=== PATIENT | female | born 1935 | race Caucasian/White ===

== ENCOUNTER 2019-09-02 09:43 | Outpatient (CLI) | payer OTHER, SELFPAY ==
--- NOTE | ~2019-09-02 | MMUS_ITS ---
EXAMINATION: MM diagnostic mammo unilat LT, US breast LT limited HISTORY: Left breast asymmetries on screening mammogram TECHNIQUE: Additional 3-D tomosynthesis images of the left breast were performed and synthetic 2-D im ages were generated. CAD analysis was submitted and interpreted. High resolution limited left breast ultrasound was performed. COMPARISON: 08/19/2019, 08/08/2018, 06/26/2017, 05/28/2016 FINDINGS: MAMMOGRAPHIC FINDINGS: No persistent asymmetry is identified in the breast with spot compression views. There is return to b aseline fibroglandular appearance. ULTRASOUND: There is a 2 mm mass at the 8:00 location 3 cm from the nipple which has the appearance of an intrama mmary lymph node. IMPRESSION: 1. No mammographic or sonographic evidence of malignancy. 2. Recommend annual screening mammography while the patient remains in good health. BI-RADS Category 2: Benign finding(s). Reviewed, dictated and finalized at location A. [employer] IMPRESSION: 1. No mammographic or sonographic evidence of malignancy. 2. Recommend annual screening mammography while the patient remains in good hea lth. BI-RADS Category 2: Benign finding(s).
== END 2019-09-02 09:44 | disposition home or self-care (01) ==
PROVIDERS: PCP Emergency Medicine; Visit Provider Emergency Medicine
DX: N64.89 Other specified disorders of breast (principal)
CPT/HCPCS: 76642; 77065

== ENCOUNTER 2020-02-09 19:49 | Emergency (ER) | payer OTHER, SELFPAY ==
--- NOTE | ~2020-02-09 | CT_ITS ---
EXAMINATION: CT abdomen pelvis w con DATE: 02/09/2020 22:56 INDICATION: Abdominal pain. Right flank pain. TECHNIQUE: Computed tomography (CT) of the abdomen and pelvis was performed with 100 mL Omnipaque 350 intravenous contrast. Automated exposure control and iterative reconstruction technique were employe d. The dose-length product was 438.57 mGy-cm. COMPARISON: PET CT 04/14/2009 FINDINGS: The visualized portions of the lung bases demonstrate mild atelectasis. There are chronic p ulmonary nodules measuring up to 8 mm, consistent with granulomatous disease. No pleural effusion. Ca rdiomegaly is noted. No pericardial effusion. The liver is normal. There are gallstones in the gallbl adder, which is normal in size. The spleen is normal. Calcifications in the pancreas are consistent w ith chronic pancreatitis. The adrenal glands are normal. There is a delayed right-sided contrast neph rogram. There is mild right hydronephrosis and hydroureter. There is a 5 mm stone at right ureteroves icular junction. There is a 7 mm cyst in left kidney. There is diverticulosis of the colon without ev idence of diverticulitis. There are no dilated loops of bowel. The appendix is not visualized. There is a small sliding hiatal hernia. There are no pathologically enlarged lymph nodes. There is no free intraperitoneal fluid. There is severe lower lumbar spondylosis. IMPRESSION: 1. 5 mm stone at right ureterovesicular junction with mild right hydronephrosis and hydroureter. Reviewed, dictated and finalized at location A. IMPRESSION: 1. 5 mm stone at right ureterovesicular junction with mild right hydronephrosi s and hydroureter.
[2020-02-09 20:12] VITALS: BP 152/66; PULSE 85; RESP 18; TEMP 37.6; O2SAT 96
[2020-02-09 20:34] LABS: Basophils Absolute Auto 0.1 K/mm3 (0.0-0.1); Basophils Percent Auto 0.3 % (0.2-1.2); Eosinophils Absolute Auto 0.1 K/mm3 (0-0.3); Eosinophils Percent Auto 0.7 % (0-4.4); Hematocrit 42.2 % (37.0-47.0); Hemoglobin 13.9 g/dL (12.0-15.0); Immature Granulocyte Absolute 0.11 K/mm3 (0.00-0.031); Immature Granulocyte Percent A 0.6 % (0-0.5); Lymphocytes Absolute Auto 2.94 K/mm3 (0.9-3.2); Lymphocytes Percent Auto 16.8 % (18.3-44.2); Mean Corpuscular HGB Conc 32.9 g/dl (32-36); Mean Corpuscular Hemoglobin 29.5 pg (26-34); Mean Corpuscular Volume 89.6 fl (80-100); Mean Platelet Volume 9.3 fl (7.4-10.4); Monocytes Absolute Auto 1.1 K/mm3 (0.1-0.6); Neutrophils Absolute Auto 13.2 K/mm3 (1.3-6.7); Neutrophils Percent Auto 75.6 % (45.5-73.1); Platelet Count Result 311 k/mm3 (150-375); Red Blood Count 4.71 M/mm3 (4.2-5.4); Red Cell Distribution Width 12.6 % (11.5-14.5); White Blood Count 17.5 K/mm3 (4.5-10.0)
[2020-02-09 20:38] LABS: Add Urine Microscopic? YES; Appearance Urine Clear (Clear); Bilirubin Urine Negative (Negative); Blood Urine 2+ (Negative); Color Urine Yellow (Yellow); Glucose Urine UA 3+ mg/dL (Negative); Ketones Urine Trace mg/dL (Negative); Leukocyte Esterase Ur Negative LEU/UL (Negative); Mucus Urine Rare /lpf; Nitrate Urine Negative (Negative); Protein Urine Negative (Negative); Squamous Epithelial Cell Urine Occasional /hpf (Few); Urobilinogen Urine Negative mg/dL (<2.0)
[2020-02-09 20:45] LABS: Blood Urea Nitrogen 22 mg/dL (7-17); Calcium 9.9 mg/dL (8.4-10.2); Carbon Dioxide 24 mmol/L (22-30); Chloride 99 mmol/L (98-107); Estimated Glomerular Filt Rate 60; Glucose 263 mg/dL (65-105); Sodium 136 mmol/L (137-145)
[2020-02-09] MEDS: SODIUM CHLORIDE 0.9% IV 1,000 ML 999 ML IV CONT (22:07)
--- NOTE | 2020-02-09 22:28 | ED.ABDPAIN ---
HPI - Abdominal Pain General Chief Complaint: Abdominal Pain Stated Complaint: right flank pain Time Seen by Provider: 02/09/20 21:52 Source: patient History of Present Illness HPI narrative: 84 years old white female presents with intermittent pain at the right flank area radiating to the right lower quadrant started 3 days ago, then resolved then back again yesterday. Associated with nausea and dry heaves. Patient reports worse with certain positionS, better with certain positions. Patient lives with her daughter, was seen by her family physician for the same symptom yesterday, no specific diagnosis, patient denies any fever, chills, chest pain, shortness of breath, back pain. Patient denies any recent new physical activities. History of diabetes hypertension hyperlipidemia hysterectomy, patient on aspirin. Related Data Home Medications Medication Instructions Recorded Confirmed ascorbic acid (vitamin C) 500 mg 500 mg PO DAILY 07/31/19 capsule,extended release aspirin 81 mg tablet,delayed See Rx Instructions .ROUTE .COMPLEX 07/31/19 release cholecalciferol (vitamin D3) 50 2,000 unit PO DAILY 07/31/19 mcg (2,000 unit) capsule omega-3 fatty acids 1,000 mg 1,000 mg PO DAILY 07/31/19 capsule Allergies Allergy/AdvReac Type Severity Reaction Status Date / Time Penicillins Allergy Unknown Verified 08/24/10 15:50 Review of Systems Review of Systems: Narrative: CONSTITUTIONAL: Denies fever, chills, or sweats. EYES: Denies visual changes, redness, or discharge. ENT: Denies rhinorrhea, congestion, sore throat, or otalgia. CARDIOVASCULAR: Denies chest pain, palpitations, or edema. RESPIRATORY: Denies cough or dyspnea. GASTROINTESTINAL: Denies abdominal pain, nausea, vomiting, or diarrhea. GENITOURINARY: Denies dysuria or hematuria. SKIN: Denies rash or itching. MUSCULOSKELETAL: Right flank pain NEUROLOGIC: Denies headache, numbness, or weakness. PSYCHIATRIC: Denies anxiety or depression. [facility] Past Medical History Medical History Diabetes mellitus Family History Family History Father Cerebrovascular accident, Onset Age: 83 Family history of diabetes mellitus in first degree relative Mother Family history of heart disease in male family member before age 55, Onset Age: 82 Family history of kidney disease, Onset Age: 82 Sibling Family history of lung disease, Onset Age: 65 Social History Social History Smoking status: Former smoker Alcohol intake: never Exam Narrative: Exam Narrative: General appearance: Well-developed, well-nourished Skin: Normal color Head: Normocephalic, nontraumatic Eyes: Clear conjunctiva ENT: Oropharynx normal, ears normal, nose normal Neck: Supple, nontender Chest and respiratory: Airway patent, no respiratory distress, no accessory muscle use Heart: Regular rate/rhythm Abdomen: Soft, nontender, no organomegaly, quiet bowel sounds, mild tenderness right flank, slight tenderness right upper quadrant, negative Ferguson sign Vascular: Normal peripheral pulses, normal capillary refill. 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
[2020-02-09] MEDS: ONDANSETRON INJ 4 MG/2 ML VIAL IV PUSH (22:39)
[2020-02-09] MEDS: MORPHINE SULFATE 4 MG/ML INJ IV PUSH (22:39)
--- NOTE | 2020-02-09 23:35 | PC.NURSE ---
pt continues to rest on stretcher at this time. RR even and unlabored. pt reports relief of pain at this time. will continue to monitor pt for baseline status changes.
[2020-02-09 23:38] VITALS: BP 155/72; PULSE 91; RESP 17; O2SAT 94
[2020-02-09] MEDS: TAMSULOSIN HCL 0.4 MG CAPSULE PO (23:56)
== END 2020-02-10 00:05 | disposition home or self-care (01) ==
PROVIDERS: General Practice; Emergency Provider Emergency Medicine; PCP Emergency Medicine
DX: N13.2 Hydronephrosis with renal and ureteral calculous obstruction (principal); E11.9 Type 2 diabetes mellitus without complications
CPT/HCPCS: 36415; 74177; 80048; 81001; 85025; 87077; 87086; 87088; 87186; 96361; 96374; 96375; 99284; A9270; J2270; J2405; J7030; Q9967

== ENCOUNTER 2020-09-28 10:01 | Outpatient (CLI) | payer OTHER, SELFPAY ==
--- NOTE | ~2020-09-28 | MM_ITS ---
EXAMINATION: MM screening faith BI w rodri HISTORY: Screening TECHNIQUE: Craniocaudal and mediolateral oblique 3-D tomosynthesis images were obtained and synthetic 2-D images were generated. CAD analysis was submitted and interpreted. COMPARISON: Comparison to multiple prior studies sequentially, with oldest reviewed study dated 05/30. BREAST PARENCHYMAL COMPOSITION: There are scattered areas of fibroglandular density. FINDINGS: There is no evidence of suspicious mass, calcification, or architectural distortion to sugg est malignancy in either breast. There has been no suspicious interval change. IMPRESSION: 1. No mammographic evidence of malignancy. 2. Recommend routine screening mammography in one year. BI-RADS Category 1: Negative Reviewed, dictated and finalized at location A. RACTOR BROOMCORN THRESHING
== END 2020-09-28 10:02 | disposition home or self-care (01) ==
LOC: ANHIMG 10:03
PROVIDERS: PCP Emergency Medicine; Visit Provider Emergency Medicine
DX: Z12.31 Encounter for screening mammogram for malignant neoplasm of breast (principal)
CPT/HCPCS: 77063; 77067

== ENCOUNTER → 2020-11-24 09:55 | Outpatient (CLI) | payer OTHER, SELFPAY ==
--- NOTE | ~2020-11-24 | XR_ITS ---
EXAMINATION: XR shoulder LT min 2V DATE: 11/24/2020 10:26 INDICATION: Adhesive capsulitis of left shoulder. TECHNIQUE: 5 views of left shoulder were obtained. COMPARISON: None. FINDINGS: Bone alignment is normal. No fracture. There is mild osteoarthritis of glenohumeral joint. Acromioclavicular joint is normal. Median sternotomy wires are noted. IMPRESSION: 1. Mild glenohumeral joint osteoarthritis. Reviewed, dictated and finalized at location A.
== END ==
PROVIDERS: PCP Emergency Medicine; Visit Provider Emergency Medicine
DX: M19.012 Primary osteoarthritis, left shoulder (principal)
CPT/HCPCS: 73030

== ENCOUNTER 2021-05-20 09:46 | Emergency (ER) | payer OTHER, SELFPAY ==
[2021-05-20] VITALS (7 sets, daily range): BP systolic 168–186; BP diastolic 67–89; PULSE 69–76; RESP 13–21; TEMP 36.8–37; O2SAT 95–98
--- NOTE | ~2021-05-20 | CT_ITS ---
EXAMINATION: CT cervical spine wo con DATE: 05/20/2021 10:34 INDICATION: Head injury TECHNIQUE: Computed tomography (CT) of the cervical spine was performed without intravenous contrast. The dose-length product (DLP) was 351.73 mGy-cm. Automated exposure control and iterative reconstruc tion technique were employed. COMPARISON: None FINDINGS: There are 2 mm of anterolisthesis of C3 on C4. The vertebral body heights are maintained. T here is severe loss of intervertebral disc space height at C5-6 and C6-7 and moderate loss of disc sp shasahnk height at C4-5. The odontoid is intact. There is no fracture. Small degenerative osteophytes proj ect from the anterior endplates of multiple vertebral bodies. There is moderate to severe multilevel facet and uncovertebral joint osteoarthritis. IMPRESSION: 1. Severe cervical spondylosis without acute findings. Reviewed, dictated and finalized at location A.
--- NOTE | ~2021-05-20 | CT_ITS ---
EXAMINATION: CT brain wo con INDICATION: Head injury COMPARISON: None TECHNIQUE: Standard unenhanced head CT. The dose-length product (DLP) was 605.33 mGy-cm. The mA was a djusted according to patient size. Iterative reconstruction technique was employed. FINDINGS: There is a right parietal scalp hematoma. There is no acute intraparenchymal hemorrhage. No evidence of mass lesion. No evidence of acute infarction. There is mild periventricular and subcorti arleen hypodensity probably related to small vessel ischemic disease. There is mild prominence of the dai lci and ventricles related to cerebral atrophy. Intracranial calcified cerebral atherosclerosis is no leah. There are no extra-axial collections. There is no mass effect or midline shift. Changes in the g lobes are likely from ocular lens surgery. There is moderate mucosal thickening of the paranasal sinu ses. There is near complete opacification of the right frontal sinus. IMPRESSION: 1. Right parietal scalp hematoma without acute intracranial abnormality. 2. Sinus disease. Reviewed, dictated and finalized at location A.
--- NOTE | 2021-05-20 09:55 | ECG_ITS ---
Measurements Intervals Handley Rate: 12 P: 64 IA: 137 QRS: -6 QRSD: 73 T: 71 QT: 424 QTc: 197 Interpretive Statements SINUS BRADYCARDIA POSSIBLE LEFT ATRIAL ENLARGEMENT NONSPECIFIC ST & T-WAVE ABNORMALITY- HIGH LATERAL LEADS BASELINE ARTIFACT- I, II, III, AVR, AVL, AVF, V1, V3-V6 BORDERLINE ECG Electronically Signed On 05-20-2021 10:57:27 CDT by Arnol Sanford D.O.
--- NOTE | 2021-05-20 09:55 | ED.FALL ---
HPI - Fall General Chief Complaint: Fall Stated Complaint: fall, lac to back of head Time Seen by Provider: 05/20/21 09:48 Source: patient and RN notes reviewed Mode of arrival: EMS Limitations: no limitations History of Present Illness HPI Narrative: This is an 86 year old female with history of hyperlipidemia and DM who presents for evaluation of head injury. Patient states she was walking when she fell backwards. She is unsure why she fell. She does not know if she tripped. She denies LOC but EMS reports posterior scalp laceration that was dressed with bandage. Patient was able to get up and ambulate after fall. She reports mild headache, but denies dizziness, nausea, vomiting. She denies extremity pain, rib pain or abdominal pain. She takes aspirin daily. Unsure of her last tetanus. Related Data Home Medications Medication Instructions Recorded Confirmed ascorbic acid (vitamin C) 500 mg 500 mg PO DAILY 07/31/19 05/16/21 capsule,extended release aspirin 81 mg tablet,delayed See Rx Instructions .ROUTE .COMPLEX 07/31/19 05/16/21 release omega-3 fatty acids 1,000 mg 1,000 mg PO DAILY 07/31/19 05/16/21 capsule Allergies Allergy/AdvReac Type Severity Reaction Status Date / Time Penicillins Allergy Unknown unknown Verified 05/16/21 09:44 Review of Systems Review of Systems: All systems reviewed & are unremarkable except as noted in HPI and below PMFSH Past Medical History Medical History (Updated 05/20/21 @ 13:08 by Hawa Youngblood MD) Diabetes mellitus HLD (hyperlipidemia) Hypertension Family History Family History Father Cerebrovascular accident, Onset Age: 83 Family history of diabetes mellitus in first degree relative Mother Family history of heart disease in male family member before age 55, Onset Age: 82 Family history of kidney disease, Onset Age: 82 Sibling Family history of lung disease, Onset Age: 65 Social History Social History Smoking status: Former smoker Alcohol intake: never Exam Const: General: no acute distress and alert Orientation/consciousness: patient oriented x3 HENMT: Head: laceration (right posterior scalp laceration 3 cm no bleeding, to subcutaneous tissues) Eyes: Pupils: Equal, round and reactive pupils present EOM: EOMs intact bilaterally Neck: Neck: normal visual inspection Chest: Chest palpation & inspection: normal inspection of the chest Resp: Effort & Inspection: normal respiratory effort and no retractions Auscultation: clear to auscultation bilaterally Cardio: Rate: regular rate Rhythm: regular rhythm Heart sounds: no murmurs GI: GI Palp: Yes Soft to palpation, No Tenderness to palpation present (GI) and No Guarding due to palpation present (GI) Auscultation: normal bowel sounds Neuro: General: patient oriented x3, moves all extremities and CN's II-XI intact bilaterally Extrem: General: normal to inspection Psych: Mental Status: mental status grossly normal Affect: normal affect Course Reevaluation(s) Reevaluation #1: Patient is eager to go home. I repaired her scalp laceration. She has been ambulatory Date: 05/20/21 Time: 13:06 Vital Signs Vital signs: Vital Signs Temperature 98.6 F 05/20/21 09:41 Pulse Rate 76 05/20/21 09:41 Respiratory Rate 18 05/20/21 09:41 Blood Pressure 186/67 H 05/20/21 09:41 Pulse Oximetry 96 05/20/21 09:41 Temperature 98.2 F 05/20/21 13:42 Pulse Rate 74 05/20/21 13:42 Respiratory Rate 15 05/20/21 13:42 Blood Pressure 168/89 H 05/20/21 13:42 Pulse Oximetry 95 05/20/21 13:42 Procedures Laceration Laceration 1: Date: 05/20/21 Time: 13:00 Site: scalp Size (cm): 3 Description: linear Depth: simple, single layer Local Anesthetic: lidocaine 1% and with epi Amount of
[2021-05-20] MEDS: TETANUS,DIPHTHERIA,AC PERTUSSIS ADULT (0.5 ML) BOOSTRIX IM (10:00)
[2021-05-20 11:20] LABS: Basophils Absolute Auto 0.1 K/mm3 (0.0-0.1); Basophils Percent Auto 0.5 % (0.2-1.2); Eosinophils Absolute Auto 0.6 K/mm3 (0-0.3); Eosinophils Percent Auto 4.3 % (0-4.4); Hematocrit 45.5 % (37.0-47.0); Hemoglobin 14.3 g/dL (12.0-15.0); Immature Granulocyte Absolute 0.08 K/mm3 (0.00-0.031); Immature Granulocyte Percent A 0.6 % (0-0.5); Lymphocytes Absolute Auto 2.32 K/mm3 (0.9-3.2); Lymphocytes Percent Auto 17.9 % (18.3-44.2); Mean Corpuscular HGB Conc 31.4 g/dl (32-36); Mean Corpuscular Hemoglobin 29.6 pg (26-34); Mean Corpuscular Volume 94.2 fl (80-100); Mean Platelet Volume 9.3 fl (7.4-10.4); Monocytes Absolute Auto 0.8 K/mm3 (0.1-0.6); Monocytes Percent Auto 6.2 % (2.6-8.5); Neutrophils Absolute Auto 9.1 K/mm3 (1.3-6.7); Neutrophils Percent Auto 70.5 % (45.5-73.1); Platelet Count Result 282 k/mm3 (150-375); Red Blood Count 4.83 M/mm3 (4.2-5.4); Red Cell Distribution Width 13.9 % (11.5-14.5)
[2021-05-20 11:36] LABS: Add Urine Microscopic? YES; Appearance Urine Clear (Clear); Bacteria Urine 3+ /hpf; Bilirubin Urine Negative (Negative); Blood Urine Negative (Negative); Color Urine Yellow (Yellow); Glucose Urine UA Negative (Negative); Ketones Urine Negative (Negative); Leukocyte Esterase Ur Negative LEU/UL (Negative); Mucus Urine Rare /lpf; Nitrate Urine Negative (Negative); Protein Urine Negative (Negative); Specific Grav Ur 1.014 (1.001-1.035); Squamous Epithelial Cell Urine Occasional /hpf (Few); Urobilinogen Urine Negative mg/dL (<2.0); WBC Urine 0-3 /hpf
[2021-05-20 12:09] LABS: Alanine Aminotransferase 22 U/L (4-35); Albumin Level 4.7 g/dL (3.5-5.1); Alkaline Phosphatase 94 U/L (38-126); Anion Gap 11 mmol/L (8-16); Aspartate Amino Transferase 35 U/L (14-36); Bilirubin,Total 0.5 mg/dL (0.2-1.3); Blood Urea Nitrogen 22 mg/dL (7-17); Calcium 10.4 mg/dL (8.4-10.2); Carbon Dioxide 28 mmol/L (22-30); Chloride 101 mmol/L (98-107); Estimated Glomerular Filt Rate > 60; Glucose 135 mg/dL (65-110); Potassium 4.3 mmol/L (3.4-5.0); Sodium 140 mmol/L (137-145)
== END 2021-05-20 13:46 | disposition home or self-care (01) ==
PROVIDERS: Emergency Provider General Practice; PCP Emergency Medicine
DX: S01.01XA Laceration without foreign body of scalp, initial encounter (principal); Z23 Encounter for immunization; E11.9 Type 2 diabetes mellitus without complications; E78.5 Hyperlipidemia, unspecified; I10 Essential (primary) hypertension; Z87.891 Personal history of nicotine dependence; Z79.84 Long term (current) use of oral hypoglycemic drugs; M47.812 Spondylosis without myelopathy or radiculopathy, cervical region; J32.9 Chronic sinusitis, unspecified; R00.1 Bradycardia, unspecified; R94.31 Abnormal electrocardiogram [ECG] [EKG]; W18.30XA Fall on same level, unspecified, initial encounter
CPT/HCPCS: 12002; 36415; 70450; 72125; 80053; 81001; 85025; 90471; 90715; 93005; 99284

== ENCOUNTER 2021-06-26 08:00 | Outpatient (RCR) | payer OTHER, SELFPAY ==
--- NOTE | 2021-06-07 09:06 | PTOPEVAL ---
PHYSICAL THERAPY EVALUATION AND PLAN OF CARE 06-07-21 Thank you for referring Quin Ruggiero to [facility], for the diagnosis of repeated falls. Mrs. Ruggiero is scheduled to be seen for therapy? 2 x/week for 3 weeks. Please review, sign, date and return this plan of care JAIME. I agree with and certify that the following plan of care is medically necessary. Referring Physician Date Attending Provider: Enmanuel Hnug MD *PT Outpatient Evaluation Document 06/07/21 08:05 MELI (Rec: 06/07/21 09:00 MELI [id number]) Therapy Assessment Status Assessment Status Assessment Status Evaluation Outpatient Past Medical History Past Medical History Source of Past Medical History Patient Neurological History Hx Other Neurological Disorders Yes: Loss of conscious due to fall and hit head on dresser Cardiovascular History Hx Hypercholesterolemia Yes: meds Hx Hypertension Yes: meds, normal 120/?; have BP cuff at home Respiratory History Hx Respiratory Disorders No Significant History Gastrointestinal History Hx Gastrointestinal Disorders No Significant History Genitourinary History Hx Genitourinary Disorders No Significant History Musculoskeletal History Hx Other Musculoskeletal Disorders Yes: neck, shoulder and back pain-?reaction to COVID booster shot Endocrine History Hx Diabetes Yes: meds Other History Hx Other Medical Conditions Yes: have had COVID vaccine and booster was 2 wk ago Evaluation Information Problem Diagnosis repeated falls Onset about one year Subjective Information pt reports in the past 6 Query Text:As Reported By Patient/ months has had 2 falls: Family stepped down off sidewalk- tripped and fell forward-? shoe caught and other fall-in bedroom getting ready to leave , not sure what happened-? passed out, hit head and loss consciousness; went to ER- yahaira in head and sent home; usually know when she is going to fall --more like loss of balance and need to catch herself; sometimes at home, tennis shoe catches on the carpet from not picking up her feet; Prior Level of Function Activity Level (Last 3 Months) Occupation retired Activity of Daily Living Ability Independent Indoor/Home Mobility
--- NOTE | 2021-06-26 08:34 | PTOPEVAL ---
PHYSICAL THERAPY DISCHARGE 06-26-21 Refer to the clinical summary below, for her status today, compared to the initial evaluation. Quin has improved in all areas and will be discharged from PT services. Thank you for referring Quin Ruggiero to [facility] Please review, sign, date and return this Discharge report JAIME. I agree with and certify that the following plan of care is medically necessary. Referring Physician Date Attending Provider: Enmanuel Hung MD Document 06/26/21 08:05 MELI (Rec: 06/26/21 08:34 MELI [id number]) Assessment Status Discharge Subjective Information Quin reports: have not had Query Text:As Reported By Patient/ any falls; been trying to do Family all the exercises at home and walk more, but hard to do with my mind on my daughter that ; Pain Assessment Timing of Pain Assessment Timing of Pain Assessment Assessment Self Report Self Report Pain Level 0 Pain Score Pain Score 0: Self Report Additional Pain Score Comments when wake up in AM, always have pain in back and legs Lower Extremity Muscle Strength Testing General Lower Extremity Strength Gross Lower Extremity Strength functional strength of LE's: - single leg standing R 7/ L 5 seconds - supine SLR R 20 /L 20 reps - supine bridge 20 reps - side lying hip abduction R to 10' x 20 / L to 10' x 20 reps - in sitting, R and L DF with heel on ground x 30 reps with equal DF R/L Transfer Assessment Floor Transfer Assessment Stand to Floor Transfer Ability Independent Floor to Stand Transfer Ability Independent Cues Needed for Floor Transfer None Floor Transfer Comments use of UE on mat for transfer Balance Assessment Fatima Balance Assessment Sitting to Standing Independent w/out Hands Unsupported Stance Ability Safely- 2 minutes Sitting Unsupported, Feet on Floor Safely- 2 minutes Standing to Sitting Safely, Minimal Hand Use Transfer Ability Safely, Minimal Hand Use Unsupported Stance- Eyes Closed Safely, 10 seconds Unsupported Stance- Feet Together Independent, 1 minute Reaching Forward while Standing Confidently, 10 inches supervisor rod placing Object From Floor Independent/Safe Look Behind Shoulder - Standing Shifts Weight Well Turning 360 Degrees Turns Bilateral, < 4 secs Unsupported Stance, Alternating Feet on (I)- 8 Steps in 20 secs Stair Unsupported Tandem Stance Achieves Tandem Unilat
== END 2021-06-27 11:36 | disposition home or self-care (01) ==
LOC: ANHPT 08:00
PROVIDERS: PCP Emergency Medicine; Visit Provider Emergency Medicine
DX: R29.6 Repeated falls (principal)
CPT/HCPCS: 97110; 97161

== ENCOUNTER 2021-10-17 09:22 | Outpatient (CLI) | payer OTHER, SELFPAY ==
--- NOTE | ~2021-10-17 | MM_ITS ---
EXAMINATION: MM screening faith BI w rodri HISTORY: Screening mammogram TECHNIQUE: Craniocaudal and mediolateral oblique 3-D tomosynthesis images were obtained and synthetic 2-D images were generated. CAD analysis was submitted and interpreted. COMPARISON: 10/03/2020 bilateral screening mammogram To diagnostic left mammogram and limited left breast ultrasound 08/19/2019, 08/08/2018 bilateral screening mammogram examinations BREAST PARENCHYMAL COMPOSITION: There are scattered areas of fibroglandular density. FINDINGS: There are focal areas of asymmetry in the left breast. Diagnostic left mammogram is recomme nded, with ultrasound if required. No suspicious mass, architectural distortion, malignant calcification, skin thickening or retraction of the right breast is evident. There is no significant change on the right. IMPRESSION: 1. Left breast asymmetries 2. Diagnostic left mammogram is recommended, with ultrasound if required. BI-RADS Category 0: Incomplete: Needs additional imaging evaluation. Reviewed, dictated and finalized at location A.
== END 2021-10-17 09:23 | disposition home or self-care (01) ==
PROVIDERS: PCP Emergency Medicine; Visit Provider Emergency Medicine
DX: Z12.31 Encounter for screening mammogram for malignant neoplasm of breast (principal); R92.8 Other abnormal and inconclusive findings on diagnostic imaging of breast
CPT/HCPCS: 77063; 77067

== ENCOUNTER → 2021-10-26 15:59 | Outpatient (CLI) | payer OTHER, SELFPAY ==
--- NOTE | ~2021-10-26 | XR_ITS ---
XR shoulder LT min 2V DATE: 10/26/2021 16:24 INDICATION: Left shoulder pain TECHNIQUE: 4 views COMPARISON: left shoulder FINDINGS: There is diffuse osteopenia. No fracture or dislocation, periosteal reaction or bone destru ction. Status post sternotomy. Aortic calcification. IMPRESSION: Diffuse osteopenia Reviewed, dictated and finalized at location A. IMPRESSION: Diffuse osteopenia
== END ==
PROVIDERS: Visit Provider Emergency Medicine
DX: M85.812 Other specified disorders of bone density and structure, left shoulder (principal)
CPT/HCPCS: 73030

== ENCOUNTER 2021-11-27 11:22 | Outpatient (CLI) | payer OTHER, SELFPAY ==
--- NOTE | ~2021-11-27 | MMUS_ITS ---
EXAMINATION: MM diagnostic faith LT w rodri, US breast LT complete HISTORY: Left breast asymmetry reported on 10/17/2021 screening mammogram TECHNIQUE: Additional 3-D tomosynthesis images of the left breast were performed and synthetic 2-D im ages were generated. CAD analysis was submitted and interpreted. High resolution complete left breast ultrasound including all 4 quadrants and subareolar area was performed. COMPARISON: 10/17/2021 bilateral screening mammogram FINDINGS: MAMMOGRAPHIC FINDINGS: No suspicious mass, architectural distortion, malignant calcification, skin thickening or retraction is evident. Scattered occasional benign calcifications. ULTRASOUND: No suspicious mass, shadowing or vascularity of the left breast is evident. Benign-appearing left axi llary lymph nodes are noted. IMPRESSION: 1. No mammographic evidence of malignancy 2. Routine mammographic screening is recommended. BI-RADS Category 2: Benign finding(s). Reviewed, dictated and finalized at location A. IMPRESSION: 1. No mammographic evidence of malignancy 2. Routine mammographic screening is recommended. BI-RADS Category 2: Benign finding(s).
== END 2021-11-27 11:23 | disposition home or self-care (01) ==
LOC: ANHIMG 11:24
PROVIDERS: PCP Emergency Medicine; Visit Provider Emergency Medicine
DX: N64.89 Other specified disorders of breast (principal)
CPT/HCPCS: 76641; 77061; 77065; G0279

== ENCOUNTER 2021-12-23 14:25 | Emergency (ER) | payer OTHER, SELFPAY ==
--- NOTE | ~2021-12-23 | US_ITS ---
EXAMINATION:US venous doppler LE RT INDICATION:Swelling and right leg pain TECHNIQUE: Multiple grayscale, color flow and Doppler images of the right lower extremity deep venous systems were obtained and reviewed. COMPARISON:No prior studies for comparison. FINDINGS: The common femoral, superficial femoral and popliteal veins demonstrate normal respiratory variation, augmentation and compressibility. Color flow is also seen within the posterior tibial, pe roneal, greater saphenous and profunda veins. IMPRESSION: 1: No lower extremity deep venous thrombosis. Reviewed, dictated and finalized at location A.
--- NOTE | ~2021-12-23 | XR_ITS ---
XR knee RT 2V 12/23/2021 14:37 Indication: Right knee pain and swelling Procedure: 2 views of the right knee Comparison: No prior studies for comparison. 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 There is a moderate joint effusion. 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 There are vascular calcifications. There are surgical changes in the medial thi gh. No acute fracture or traumatic malalignment. Impression: 1: No acute fracture. 2: Moderate osteoarthritis. 3: Moderate joint effusion. Reviewed, dictated and finalized at location A. Impression: 1: No acute fracture. 2: Moderate osteoarthritis. 3: Moderate joint effusion.
[2021-12-23 14:12] VITALS: BP 165/63; PULSE 70; RESP 16; TEMP 36.4; O2SAT 97
[2021-12-23] MEDS: ACETAMINOPHEN 325 MG TABLET 650 MG PO (14:37)
--- NOTE | 2021-12-23 14:53 | ED.EXTPRO ---
HPI - Extremity Problem General Chief complaint: Extremity Problem,Nontraumatic Stated complaint: knee pain x 1 day History of Present Illness HPI Narrative: Patient is an 86-year-old female here for evaluation of atraumatic right knee pain for the past day. Patient states the pain came on while she was seated and has gradually increased since. Denies relief after aspirin. States the pain is worse with knee flexion and with ambulation. She is able to ambulate and bear weight but states it is painful. Denies trauma to the knee or recent falls. Denies hip pain, foot pain, numbness, tingling, fevers, chills, or other systemic symptoms. Denies break in skin. Related Data Home Medications Medication Instructions Recorded Confirmed ascorbic acid (vitamin C) 500 mg 500 mg PO DAILY 07/31/19 05/16/21 capsule,extended release (Vitamin C) aspirin 81 mg tablet,delayed See Rx Instructions .Route .COMPLEX 07/31/19 05/16/21 release omega-3 fatty acids 1,000 mg 1,000 mg PO DAILY 07/31/19 05/16/21 capsule (Fish Oil Concentrate) Allergies Allergy/AdvReac Type Severity Reaction Status Date / Time Penicillins Allergy Unknown unknown Verified 12/23/21 14:19 Review of Systems Review of Systems: Gen.: Denies fevers or chills Eyes: Denies eye pain or visual change ENT: Denies congestion Respiratory: Denies shortness of breath or cough CV: Denies chest pain or palpitations GI: Denies abdominal pain nausea, emesis or diarrhea denies burning, urgency, frequency or hematuria Musculoskeletal: Reports right knee pain Neuro: Denies numbness, tingling, weakness or focal weakness Skin: Denies rash Except as documented, all other systems reviewed and negative [facility] Past Medical History Medical History Diabetes mellitus HLD (hyperlipidemia) Hypertension Family History Family History Father Cerebrovascular accident, Onset Age: 83 Family history of diabetes mellitus in first degree relative Mother Family history of heart disease in male family member before age 55, Onset Age: 82 Family history of kidney disease, Onset Age: 82 Sibling Family history of lung disease, Onset Age: 65 Social History Social History Smoking status: Former smoker Alcohol intake: never Exam Narrative: APPEARANCE: Well appearing, no pain in distress, well-nourished. Head: normocephalic and atraumatic. EYES: PERRLA/EOMI, conjunctivae clear NOSE: No nasal drainage EARS: External ear normal in appearance THROAT: Oropharynx is clear. Mucous membranes are moist. NECK: Supple. No adenopathy, no masses. RESPIRATORY: Airway patent, respirations nonlabored. Clear to auscultation bilaterally, no rales, rhonchi, wheezing. CARDIOVASCULAR: Regular rate and rhythm without murmurs, rubs, or gallops. ABDOMINAL: Normoactive bowel sounds. Soft, nontender, nondistended. No rebound tenderness or guarding. MUSCULOSKELETAL: No bony tenderness to right hip, patella, femur, tib-fib to palpation. Pain in popliteal fossa is elicited with knee flexion, but she is not tender to palpation. Reports mild pain with active flexion of the right knee. No overlying redness or warmth to knee. Extremities are warm and well-perfused. No edema. NEURO: Normal speech. No focal neurologic deficits. SKIN: Skin is warm and dry. No rashes. PSYCHIATRIC: Normal affect/mood. Course Vital Signs Vital signs: Vital Signs Temperature 97.6 F 12/23/21 14:12 Pulse Rate 70 12/23/21 14:12 Respiratory Rate 16 12/23/21 14:12 Blood Pressure 165/63 H 12/23/21 14:12 Pulse Oximetry 97 12/23/21 14:12 Oxygen Delivery Room Air 12/23/21 14:12 Temperature 97.6 F 12/23/21 14:12 Pulse Rate 71 12/23/21 16:43 Respiratory Rate 17 12/23/21 16:43 Blood Pressure 164/73 H
[2021-12-23] MEDS: LIDOCAINE 5% PATCH 1 PATCH TRANSDERM (14:56)
--- NOTE | 2021-12-23 15:46 | PC.NURSE ---
Pt to U/S via w/c at this time.
[2021-12-23 16:43] VITALS: BP 164/73; PULSE 71; RESP 17; O2SAT 95
== END 2021-12-23 16:46 | disposition home or self-care (01) ==
PROVIDERS: Emergency Provider Emergency Medicine; PCP Emergency Medicine
DX: M17.11 Unilateral primary osteoarthritis, right knee (principal); E11.9 Type 2 diabetes mellitus without complications; E78.5 Hyperlipidemia, unspecified; I10 Essential (primary) hypertension; M79.604 Pain in right leg; Z79.82 Long term (current) use of aspirin; Z87.891 Personal history of nicotine dependence; Z79.84 Long term (current) use of oral hypoglycemic drugs
CPT/HCPCS: 73560; 93971; 99284; A9270

== ENCOUNTER 2022-01-21 11:19 | Observation (INO) | payer OTHER, SELFPAY ==
[2022-01-21] VITALS (37 sets, daily range): BP systolic 137–189; BP diastolic 55–109; PULSE 72–93; RESP 11–20; TEMP 36.6–37.1; O2SAT 85–100; BMI 27.4
--- NOTE | ~2022-01-21 | CT_ITS ---
EXAMINATION: CT abdomen pelvis wo con DATE: 01/21/2022 13:17 INDICATION: Left flank and lower quadrant pain TECHNIQUE: Computed tomography (CT) of the abdomen and pelvis was performed without intravenous contr ast. The dose-length product (DLP) was 489.32 mGy-cm. Automated exposure control and iterative recons truction technique were employed. COMPARISON: 02/09/2020 FINDINGS: Minimal dependent atelectasis is present in the lung bases. The heart size is normal. There is a stable 6 mm nodule of the lingula. Stones are present in the nondistended gallbladder. The live r, spleen, and adrenal glands are normal. Punctate calcifications of the pancreas are consistent with chronic pancreatitis. The right kidney is unremarkable. There is a 6 mm stone of the distal left ure ter which causes moderate hydroureteronephrosis. There is calcified atherosclerosis of the aorta and many of the other arteries. Colonic diverticulosis is present without evidence of diverticulitis. No pathologically enlarged abdominal or pelvic lymph nodes are identified. There is no free intraperiton eal gas or evidence of bowel obstruction. There is severe lower lumbar spondylosis. IMPRESSION: 1. 6 mm stone of the distal left ureter causing moderate hydroureteronephrosis. 2. Cholelithiasis without evidence of cholecystitis. Reviewed, dictated and finalized at location A.
--- NOTE | ~2022-01-21 | XR_ITS ---
EXAMINATION: XR chest 1V portable INDICATION: Chest pain TECHNIQUE: Portable AP chest at 0953 hours COMPARISON: None available FINDINGS: The lungs are free of acute opacities. No pleural effusion or pneumothorax. The cardiomedia stinal silhouette is normal. Median sternotomy wires are consistent with prior cardiac surgery. IMPRESSION: 1. No acute cardiopulmonary abnormality. Reviewed, dictated and finalized at location A.
--- NOTE | ~2022-01-21 | XR_ITS ---
EXAMINATION: XR retrograde pyelo w/stent LT DATE: 01/21/2022 16:00 CDT INDICATION: LEFT STENT . TECHNIQUE: 5 fluoroscopic images of the left abdomen were obtained during left retrograde pyelography with stent placement performed by the surgeon. I was not present in the operating room. Fluoroscopy exposure time was 16.6 seconds. Cumulative dose was 0.05424 mGy2. COMPARISON: CT abdomen pelvis 01/21/2022 FINDINGS: Guidewire access to the renal pelvis and an upper pole calyx. Subsequent deployment of a left uretera l stent, incomplete coiling in the renal pelvis, distal coil overlies expected position of the bladde r. Previously described distal ureteral stone not confidently identified. IMPRESSION: Fluoroscopic documentation of left retrograde pyelography and stent placement. Reviewed, dictated and finalized at location K.
[2022-01-21 11:58] LABS: Basophils Absolute Auto 0.1 K/mm3 (0.0-0.1); Basophils Percent Auto 0.4 % (0.2-1.2); Eosinophils Absolute Auto 0.1 K/mm3 (0-0.3); Eosinophils Percent Auto 0.8 % (0-4.4); Hemoglobin 14.2 g/dL (12.0-15.0); Immature Granulocyte Absolute 0.08 K/mm3 (0.00-0.031); Immature Granulocyte Percent A 0.6 % (0-0.5); Lymphocytes Absolute Auto 2.17 K/mm3 (0.9-3.2); Lymphocytes Percent Auto 14.9 % (18.3-44.2); Mean Corpuscular HGB Conc 31.6 g/dl (32-36); Mean Corpuscular Hemoglobin 28.6 pg (26-34); Mean Corpuscular Volume 90.7 fl (80-100); Mean Platelet Volume 9.5 fl (7.4-10.4); Monocytes Absolute Auto 1.4 K/mm3 (0.1-0.6); Monocytes Percent Auto 9.9 % (2.6-8.5); Neutrophils Absolute Auto 10.7 K/mm3 (1.3-6.7); Neutrophils Percent Auto 73.4 % (45.5-73.1); Platelet Count Result 387 k/mm3 (150-375); Red Blood Count 4.96 M/mm3 (4.2-5.4); Red Cell Distribution Width 14.5 % (11.5-14.5); White Blood Count 14.5 K/mm3 (4.5-10.0)
--- NOTE | 2022-01-21 12:22 | ED.GENADULT ---
HPI - General Adult General Chief complaint: Abdominal Pain Stated complaint: n/v Time Seen by Provider: 01/21/22 11:47 History of Present Illness HPI narrative: 86-year-old female presenting to the emergency department for evaluation of left flank pain and left lower quadrant pain. Patient states over the last 2-4 days she has had worsening pain with associated nausea and vomiting. Patient denies any pain with urination. Patient denies any prior history of kidney stones. Patient states she has not eaten any solids since yesterday. Patient did have liquid tea for breakfast this morning. Patient does have a prior history of hysterectomy. Patient has had prior colonoscopies without issues. Related Data Home Medications Medication Instructions Recorded Confirmed ascorbic acid (vitamin C) 500 mg 500 mg PO DAILY 07/31/19 05/16/21 capsule,extended release (Vitamin C) aspirin 81 mg tablet,delayed See Rx Instructions .Route .COMPLEX 07/31/19 05/16/21 release cholecalciferol (vitamin D3) 25 25 mcg PO DAILY 12/28/21 mcg (1,000 unit) capsule Allergies Allergy/AdvReac Type Severity Reaction Status Date / Time Penicillins Allergy Unknown unknown Verified 01/21/22 11:37 Review of Systems Review of Systems: CONSTITUTIONAL: Denies fever, chills, or sweats. EYES: Denies visual changes, redness, or discharge. ENT: Denies rhinorrhea, congestion, sore throat, or otalgia. CARDIOVASCULAR: Denies chest pain, palpitations, or edema. RESPIRATORY: Denies cough or dyspnea. GASTROINTESTINAL: See HPI GENITOURINARY: Denies dysuria or hematuria. SKIN: Denies rash or itching. MUSCULOSKELETAL: Denies back pain, joint pain, or myalgia. NEUROLOGIC: Denies headache, numbness, or weakness. PSYCHIATRIC: Denies anxiety or depression. [facility] Past Medical History Medical History Anxiety Diabetes mellitus HLD (hyperlipidemia) Hypertension Surgical History Surgical History History of hysterectomy History of open heart surgery Family History Family History Father Cerebrovascular accident, Onset Age: 83 Family history of diabetes mellitus in first degree relative Mother Family history of heart disease in male family member before age 55, Onset Age: 82 Family history of kidney disease, Onset Age: 82 Cerebrovascular accident Cancer Sibling Family history of lung disease, Onset Age: 65 Social History Social History Smoking status: Former smoker Alcohol intake: never Exam Narrative: APPEARANCE: Well appearing, no pain, no distress, well-nourished. HEAD: normocephalic, atraumatic. EYES: PERRLA/EOMI, conjunctivae clear. THROAT: Pharynx clear, no exudate. NECK: Supple. No adenopathy, no masses. RESPIRATORY: Airway patent, respirations nonlabored. Clear to auscultation bilaterally, no rales, rhonchi, wheezing. CARDIOVASCULAR: Regular rate and rhythm without murmurs rubs or gallops. ABDOMINAL: Soft, normal bowel sounds, some left lower quadrant tenderness to palpation. MUSCULOSKELETAL: Moves all extremities. Strength/ROM intact, No edema, No calf tenderness. NEURO: Alert. Cranial nerves II through XII intact. Good gait. Good coordination SKIN: Warm, dry. Normal Color PSYCHIATRIC: Normal affect/mood. Course Course Emergency Course: Concern for infected stone. Patient does have a 6 mm ureteral calculi along with a leukocytosis of 14.5 and a UA with positive nitrates high bacteria and high red and white cells. Patient was treated with 1 g of IV Rocephin. Urology was consulted. Plan is to take to surgery and place a stent. Patient and family were updated on the results of the work-up and plan for admission and treatment. All question concerns were addressed. Vital Sign
[2022-01-21 12:28] LABS: Appearance Urine Slightly Cloudy (Clear); Bilirubin Urine Negative (Negative); Blood Urine 2+ (Negative); Color Urine Yellow (Yellow); Glucose Urine UA Negative (Negative); Ketones Urine Negative (Negative); Leukocyte Esterase Ur 2+ LEU/UL (Negative); Nitrate Urine Positive (Negative); Protein Urine 1+ mg/dL (Negative); Specific Grav Ur 1.015 (1.001-1.035); Urobilinogen Urine 0.2 mg/dL (<2.0); pH Urine 5.5 (5.0-9.0)
[2022-01-21] MEDS: ONDANSETRON INJ 4 MG/2 ML VIAL IV PUSH (12:32)
[2022-01-21] MEDS: SODIUM CHLORIDE 0.9% IV 500 ML 999 ML IV CONT (12:33)
[2022-01-21] MEDS: HYDROmorphone HCL INJ (*CRX) 1 MG/ML SYR 0.5 MG IV PUSH (12:33)
[2022-01-21 12:39] LABS: Alanine Aminotransferase 23 U/L (6-35); Albumin Level 4.8 g/dL (3.5-5.1); Alkaline Phosphatase 92 U/L (38-126); Anion Gap 10 mmol/L (8-16); Aspartate Amino Transferase 32 U/L (14-36); Bilirubin,Total 0.8 mg/dL (0.2-1.3); Blood Urea Nitrogen 33 mg/dL (7-17); Calcium 10.1 mg/dL (8.4-10.2); Carbon Dioxide 29 mmol/L (22-30); Chloride 101 mmol/L (98-107); Estimated CRCL calculation 24 ml/min; Estimated Glomerular Filt Rate 39; Glucose 176 mg/dL (65-110); Lipase 32 U/L (23-300); Potassium 3.8 mmol/L (3.4-5.0); Sodium 140 mmol/L (137-145)
[2022-01-21 12:47] LABS: Bacteria Urine 4+ /hpf; Mucus Urine Rare /lpf; Squamous Epithelial Cell Urine Moderate /hpf (Few); WBC Urine 31-50 /hpf
[2022-01-21 12:48] LABS: Add Urine Microscopic? YES
[2022-01-21] MEDS: MORPHINE SULFATE (*CRX) 2 MG/ML INJ IV PUSH (15:07)
--- NOTE | 2022-01-21 15:24 | WPDANESEPP ---
Anes - Eval Pre Procedure Procedure: Cystoureteroscopy, Left Stent placement Date/Time: 01/21/22 15:24 Surgeon: Dr. Yang Preop Diagnosis: 6mm distal left ureteral stone Pre Op Diagnosis: Infected kidney stone Patient Data Age: 86 Gender: F Height: 1.55 m Weight: 65.9 kg Last Vital Signs Temp 98.5 F 01/21/22 11:29 Pulse 74 01/21/22 14:07 Resp 17 01/21/22 14:07 BP 182/74 H 01/21/22 14:07 Pulse Ox 99 01/21/22 14:07 O2 Del Method Room Air 01/21/22 14:07 O2 Flow Rate 2 01/21/22 13:04 Allergies Allergy/AdvReac Type Severity Reaction Status Date / Time Penicillins Allergy Unknown unknown Verified 01/21/22 11:37 Home Medications Medication Instructions Recorded Confirmed Type ascorbic acid (vitamin C) 500 mg 500 mg PO DAILY 07/31/19 05/16/21 History capsule,extended release (Vitamin C) aspirin 81 mg tablet,delayed See Rx Instructions .Route .COMPLEX 07/31/19 05/16/21 History release lancets 33 gauge (Micro Thin #100 ea 02/17/21 05/16/21 Rx Lancets) alendronate 70 mg tablet See Rx Instructions .Route 03/22/21 05/16/21 Rx .COMPLEX #12 tabs metformin 500 mg tablet See Rx Instructions .Route 07/10/21 Rx .COMPLEX #360 tabs omeprazole 40 mg capsule,delayed See Rx Instructions .Route 07/10/21 Rx release .COMPLEX #90 caps blood sugar diagnostic (Contour See Rx Instructions .Route 08/14/21 Rx Next Test Strips) .COMPLEX #100 strips alprazolam 0.5 mg tablet (Xanax) 0.5 mg PO BID PRN anxiety #60 tabs 10/11/21 Rx losartan 50 mg tablet 50 mg PO DAILY #90 tabs 11/14/21 Rx glimepiride 2 mg tablet See Rx Instructions .Route 11/17/21 Rx .COMPLEX #90 tabs amlodipine 5 mg tablet (Norvasc) 5 mg PO DAILY #90 tabs 11/20/21 Rx cholecalciferol (vitamin D3) 25 25 mcg PO DAILY 12/28/21 History mcg (1,000 unit) capsule venlafaxine 150 mg 150 mg PO QAM #30 caps 01/02/22 Rx capsule,extended release 24 hr Laboratory Tests 01/21/22 01/21/22 01/21/22 11:50 12:17 12:17 WBC 14.5 K/mm3 H K/mm3 (4.5-10.0) RBC 4.96 M/mm3 M/mm3 (4.2-5.4) Hgb 14.2 g/dL g/dL (12.0-15.0) Hct 45.0 % % (37.0-47.0) MCV 90.7 fl fl (80-100) MCH 28.6 pg pg (26-34) MCHC 31.6 g/dl L g/dl (32-36) RDW 14.5 % % (11.5-14.5) Plt Count 387 k/mm3 H k/mm3 (150-375) MPV 9.5 fl fl (7.4-10.4) Immature Gran % (Auto) 0.6 % H % (0-0.5) Neut % (Auto) 73.4 % H % (45.5-73.1) Lymph % (Auto) 14.9 % L % (18.3-44.2) [place] % (Auto) 9.9 % H % (2.6-8.5) Eos % (Auto) 0.8 % % (0-4.4) Baso % (Auto) 0.4 % % (0.2-1.2) Lymph # (Auto) 2.17 K/mm3 K/mm3 (0.9-3.2) [place] # (Auto) 1.4 K/mm3 H K/mm3 (0.1-0.6) Eos # (Auto) 0.1 K/mm3 K/mm3 (0-0.3) Baso # (Auto) 0.1 K/mm3 K/mm3 (0.0-0.1) Abs Immat Gran (auto) 0.08 K/mm3 H K/mm3 (0.00-0.031) Absolute Neuts (auto) 10.7 K/mm3 H K/mm3 (1.3-6.7) Absolute Nucleated RBC 0.0 K/mm3 K/mm3 (0.0-0.012) Nucleated RBC % 0.0 % % (0.0-0.2) Sodium 140 mmol/L mmol/L (137-145) Potassium 3.8 mmol/L mmol/L (3.4-5.0) Chloride 101 mmol/L mmol/L (98-107) Carbon Dioxide 29 mmol/L mmol/L (22-30) Anion Gap 10 mmol/L mmol/L (8-16) BUN 33 mg/dL H D mg/dL (7-17) Creatinine 1.30 mg/dL H mg/dL (0.7-1.0) Estim Creat Clear Calc 24 ml/min ml/min Estimated GFR 39 L (59 - ) Glucose 176 mg/dL H mg/dL (65-110) Calcium 10.1 mg/dL mg/dL (8.4-10.2) Total Bilirubin 0.8 mg/dL mg/dL (0.2-1.3) AST 32 U/L U/L (14-36) ALT 23 U/L U/L (6-35) Alkaline Phosphatase 92 U/L U/L (38-126) Total Protein 9.0 g/dL H g/dL (6.3-8.2) Albumin 4.8 g/dL g/dL (3.5-5.1) L
--- NOTE | 2022-01-21 15:36 | WPDURCON ---
Assessment and Plan Assessment and plan (1) Left ureteral calculus: Code(s): N20.1 - Calculus of ureter Status: Acute Assessment and Plan: She has an obstructing left distal ureter stone. She will have a cystoscopy with stent placement today. We discussed the need for definitive surgery after treatment of the infection. We discussed risks of stent colic and worsening of infection with the stent placement. She would like to have the cystoscopy with stent placement today. (2) Acute pyelonephritis: Code(s): N10 - Acute pyelonephritis Status: Acute Assessment and Plan: She has evidence of UTI. She will have a stent placement today on the left to allow the urine to bypass the stone. She will have treatment of the infection with IV antibiotics until the final culture results are available. She will likely need two nights admission to the hospital. She will be admitted to the medicine service. Urology Consult Note HPI Date Seen: 01/21/22 Requesting Physician: Sharmaine Kelly DO Primary Care Provider: Enmanuel Hung MD Consult Narrative Narrative: Quin Ruggiero is a 86 year old female with left flank pain. She has not had fevers or chills. On admission to the ER at [facility], she was noted to have nitrate positive urine and a WBC of 14. She has received pain control, and her left flank pain has improved. Review of Systems Review of Systems: All systems reviewed & are unremarkable except as noted in HPI and below PMFSH Past Medical History Medical History Anxiety Diabetes mellitus HLD (hyperlipidemia) Hypertension Surgical History Surgical History History of hysterectomy History of open heart surgery Family History Family History Father Cerebrovascular accident, Onset Age: 83 Family history of diabetes mellitus in first degree relative Mother Family history of heart disease in male family member before age 55, Onset Age: 82 Family history of kidney disease, Onset Age: 82 Cerebrovascular accident Cancer Sibling Family history of lung disease, Onset Age: 65 Social History Social History Smoking status: Former smoker Alcohol intake: never Meds Home Medications and Allergies Home Medications Medication Instructions Recorded Confirmed Type ascorbic acid (vitamin C) 500 mg 500 mg PO DAILY 07/31/19 05/16/21 History capsule,extended release (Vitamin C) aspirin 81 mg tablet,delayed See Rx Instructions .Route .COMPLEX 07/31/19 05/16/21 History release lancets 33 gauge (Micro Thin #100 ea 02/17/21 05/16/21 Rx Lancets) alendronate 70 mg tablet See Rx Instructions .Route 03/22/21 05/16/21 Rx .COMPLEX #12 tabs metformin 500 mg tablet See Rx Instructions .Route 07/10/21 Rx .COMPLEX #360 tabs omeprazole 40 mg capsule,delayed See Rx Instructions .Route 07/10/21 Rx release .COMPLEX #90 caps blood sugar diagnostic (Contour See Rx Instructions .Route 08/14/21 Rx Next Test Strips) .COMPLEX #100 strips alprazolam 0.5 mg tablet (Xanax) 0.5 mg PO BID PRN anxiety #60 tabs 10/11/21 Rx losartan 50 mg tablet 50 mg PO DAILY #90 tabs 11/14/21 Rx glimepiride 2 mg tablet See Rx Instructions .Route 11/17/21 Rx .COMPLEX #90 tabs amlodipine 5 mg tablet (Norvasc) 5 mg PO DAILY #90 tabs 11/20/21 Rx cholecalciferol (vitamin D3) 25 25 mcg PO DAILY 12/28/21 History mcg (1,000 unit) capsule venlafaxine 150 mg 150 mg PO QAM #30 caps 01/02/22 Rx capsule,extended release 24 hr Allergies Allergy/AdvReac Type Severity Reaction Status Date / Time Penicillins Allergy Unknown unknown Verified 01/21/22 11:37 Vital Signs Vital Signs - 24 hr 01/21/22 11:29 01/21/22 11:27 06
--- NOTE | 2022-01-21 15:48 | WPDHPUPDATE1 ---
History and Physical Update Update Date/Time: 01/21/22 15:48 History and Physical has been reviewed, including an updated exam of the patient. There are NO changes in the patient's condition. Risks, benefits, and alternatives have been discussed and questions answered. Patient agrees to proceed with procedure.
--- NOTE | 2022-01-21 15:52 | P.PNAN_ITS ---
Anes - Eval Final PreProcedure Day of Procedure 01/21/22 15:52 Patient weight: overweight Heart: regular rate and rhythm Lungs: clear to auscultation Airway: Mallampati scale class II Neurological: alert and oriented Last oral intake: >/= 8 hours ASA classification: III Emergent: yes Anesthetic plan: proceed Anesthesia type and monitoring: general GIVS and standard monitoring Results Review: All pre-operative results and documents have been reviewed as part of the pre- operative evaluation. Informed Consent: The patient's anesthetic plan and its attendant risks and benefits were discussed with the patient/family/POA. Questions were solicited and answers provided to the satisfaction of the patient/family/POA.
[2022-01-21] MEDS: LACTATED RINGERS 1,000 ML 30 ML IV CONT (15:58)
--- NOTE | 2022-01-21 16:00 | PM.IMHP ---
H&P: HPI History of Present Illness Date/Time: 01/21/22 16:00 Chief Complaint: Left flank pain pain, nausea, vomiting Narrative: This is a a very pleasant 86-year-old female with history of Chin esophagus, GERD, coronary artery disease, hypertension, and diabetes who presented to the emergency department for evaluation of left flank pain, nausea, and vomiting. She has not been feeling well for around 3 days with occasional chills, nausea, vomiting, and left flank pain which she has a difficult time describing. She has been taking ibuprofen and using a topical pain reliever with minimal relief; at times the pain is so bad that she has difficulties sleeping. Over the past 24 hours she has not had any food and was only able to drink a small amount of tea at breakfast time. A CT of the abdomen and pelvis showed a 6 mm stone of the distal left ureter causing moderate hydroureteronephrosis and this apprise as the patient as she has no history of kidney stone and she has not had any urinary symptoms. She is now status post cystoscopy with left retrograde pyelogram and left ureteral stent placement per Dr. Yang and she has little to no pain at the time my evaluation. Review of Systems Review of Systems: Twelve systems were reviewed. She has had chills but no fever. No cold or flu symptoms. No chest pain or shortness of breath. No hematemesis. She denies dysuria, hematuria, urgency, and frequency. No lightheadedness or dizziness. Except as documented, all other systems were reviewed and are negative. [facility] Past Medical History Medical History (Updated 01/21/22 @ 16:21 by Jada Cooper PA-C) Anxiety Arthritis Chin's esophagus Coronary artery disease Duodenal arteriovenous malformation Gastroesophageal reflux disease Hiatal hernia Hyperlipidemia Hypertension Type 2 diabetes mellitus Vitamin D deficiency disease Surgical History Surgical History (Updated 01/21/22 @ 16:15 by Jada Cooper PA-C) History of appendectomy History of colonoscopy History of coronary artery bypass graft x 2 (1999) History of esophagogastroduodenoscopy History of hysterectomy History of tonsillectomy Family History Family History Father Cerebrovascular accident, Onset Age: 83 Family history of diabetes mellitus in first degree relative Mother Family history of heart disease in male family member before age 55, Onset Age: 82 Family history of kidney disease, Onset Age: 82 Cerebrovascular accident Cancer Sibling Family history of lung disease, Onset Age: 65 Social History Social History (Updated 01/21/22 @ 21:14 by Jada Cooper PA-C) Social History: Surrogate decision maker: Randi Evans, daughter. Code status: Full code. Smoking status: Former smoker Alcohol intake: never Substance use: never Additional living arrangements comments: The patient lives in [place] with her daughter. 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 Spiritual care concerns: No Meds Home Medications and Allergies Home Medications Medication Instructions Recorded Confirmed Type ascorbic acid (vitamin C) 500 mg 500 mg PO DAILY 07/31/19 01/21/22 History capsule,extended release (Vitamin C) aspirin 81 mg tablet,delayed 81 mg PO DAILY 07/31/19 01/21/22 History release lancets 33 gauge (Micro Thin #100 ea 02/17/21 01/21/22 Rx Lancets) metformin 500 mg tablet See Rx Instructions .Route 07/10/21 01/21/22 Rx .COMPLEX #360 tabs omeprazole 40 mg capsule,delayed See Rx Instructions .Route 07/10/21 01/21/22 Rx release .COMPLEX #90 caps blood sugar diagnostic (Contour See Rx Instructions .Route 08/14/21 01/21/22 Rx Next Test Strips) .COMPLEX #100 strips alprazolam 0.5 mg tablet (Xanax) 0.5 mg PO BID PRN anxiety #60 tabs 10/11/21 01/21/22 Rx losartan 50 mg tablet 50 mg PO DAILY #90 tabs 04
--- NOTE | 2022-01-21 16:15 | W.PM.PROC2 ---
Procedure Note - Detailed Date of Procedure 01/21/22 Pre-op Diagnosis Infected kidney stone Post-op Diagnosis Other (infected ureter stone) Procedure Performed Cystoscopy with left retrograde pyelogram and left ureteral stent placement. Surgeon Perfecto Yang MD Anesthesia General Indications infected left ureter stone Findings normal bladder on cystoscopy left hydronephrosis on retrograde pyelogram purulent drainage from left ureter Description of Procedure The patient was brought to the operating room in stable condition. She was placed under general anesthesia. She was placed in lithotomy position and prepped and draped in sterile fashion. A 22 Sinhala cystoscope was introduced through the urethra into the bladder. The bladder was examined. No lesions were noted. The left ureter orifice was visualized and cannulated with a Brady wire followed by and open ended catheter. Purulent urine emerged from the ureter. The open ended catheter was placed to the renal pelvis. Urine was obtained for culture. The wire was replaced and the open ended catheter was removed. Under direct vision and fluoroscopic guidance, a 6french variable length catheter was placed. A good curl was noted in the renal pelvis and a good curl was noted in the bladder. Local Lidocaine jelly was placed and the Anaya catheter was placed. The patient tolerated the procedure well. She was brought to the recovery room in stable condition. Estimated Blood Loss 0 Drains Yes (Left ureter catheter) Complications No immediate complications Condition Stable Disposition PACU
[2022-01-21] MEDS: LIDOCAINE HCL 2% GEL UROJET 10 ML PKG MUCOUS MEM (16:16)
[2022-01-21 16:31] LABS: Glucose Point of Care 138 mg/dl (65-105)
[2022-01-21 16:46] LABS: Hemoglobin A1C 6.4 % (<5.7)
--- NOTE | 2022-01-21 18:37 | PC.NURSE ---
This patient, Quin Ruggiero, was admitted to 3 [facility] Surg Room 315-01. Patient/family oriented to hospital policies and general routines including ID bracelet, bed and alarms, visiting hours, pain management, procedures, bathroom and other care routines, personal items, smoking policy, room service/diet, and visiting hours. Information on how to activate the Rapid Response Team has been discussed. Patient/Family are encouraged to report perceived risks to care and to ask questions if they do not understand what they are told or what they should do.
[2022-01-21 20:40] LABS: Glucose Point of Care 152 mg/dl (65-105)
[2022-01-21] MEDS: LACTATED RINGERS 1,000 ML 75 ML IV CONT (21:35)
[2022-01-22] VITALS: BP 125/80; PULSE 70; RESP 16; TEMP 36.8; O2SAT 100
[2022-01-22 04:00] VITALS: BP 147/62; PULSE 66; RESP 16; TEMP 36.9; O2SAT 100
[2022-01-22 06:25] LABS: Hematocrit 37.5 % (37.0-47.0); Mean Corpuscular Hemoglobin 29.1 pg (26-34); Mean Corpuscular Volume 90.8 fl (80-100); Mean Platelet Volume 9.3 fl (7.4-10.4); Platelet Count Result 291 k/mm3 (150-375); Red Blood Count 4.13 M/mm3 (4.2-5.4); Red Cell Distribution Width 14.3 % (11.5-14.5); White Blood Count 9.3 K/mm3 (4.5-10.0)
[2022-01-22 06:49] LABS: Anion Gap 5 mmol/L (8-16); Blood Urea Nitrogen 28 mg/dL (7-17); Calcium 8.7 mg/dL (8.4-10.2); Carbon Dioxide 28 mmol/L (22-30); Chloride 104 mmol/L (98-107); Estimated CRCL calculation 35 ml/min; Estimated Glomerular Filt Rate 59; Glucose 157 mg/dL (65-110); Magnesium 1.6 mg/dL (1.6-2.3); Potassium 3.7 mmol/L (3.4-5.0); Sodium 137 mmol/L (137-145)
--- NOTE | 2022-01-22 07:42 | WPDUROPN2 ---
Progress Note: A&P Assessment and Plan (1) Left ureteral calculus: Code(s): N20.1 - Calculus of ureter Status: Acute Assessment and Plan: Status post ureteral stent. Will need definitive stone management as an outpatient (2) Abnormal urinalysis: Code(s): R82.90 - Unspecified abnormal findings in urine Status: Acute Assessment and Plan: Can DC home on oral antibiotics once cultures back. Okay to remove Anaya Subjective Subjective Date/Time Seen: 01/22/22 07:42 As well. She is anxious to go home. Urine cultures Exam Narrative: Resting comfortably. Anaya clear yellow urine. No acute distress. Normal breathing. Objective Data Vital Signs Vital Signs: Vital Signs - 24 hr 01/21/22 11:29 01/21/22 11:27 01/21/22 11:30 Temperature 98.5 F Pulse Rate 85 93 Respiratory Rate 15 19 Blood Pressure 152/65 H 152/65 H Pulse Oximetry 95 98 96 Oxygen Delivery Room Air Oxygen Flow Rate 01/21/22 11:31 01/21/22 11:45 01/21/22 12:00 Temperature Pulse Rate 91 79 78 Respiratory Rate 18 11 L 17 Blood Pressure Pulse Oximetry 96 96 96 Oxygen Delivery Oxygen Flow Rate 01/21/22 12:01 01/21/22 12:20 01/21/22 12:30 Temperature Pulse Rate 73 81 85 Respiratory Rate 13 15 16 Blood Pressure 169/72 H Pulse Oximetry 95 100 97 Oxygen Delivery Oxygen Flow Rate 01/21/22 12:55 01/21/22 13:04 01/21/22 12:55 Temperature Pulse Rate 87 Respiratory Rate 19 Blood Pressure 189/80 H Pulse Oximetry 85 L 100 85 L Oxygen Delivery Nasal Cannula Nasal Cannula Oxygen Flow Rate 4 2 01/21/22 13:00 01/21/22 13:17 01/21/22 14:07 Temperature Pulse Rate 73 79 Respiratory Rate 15 17 Blood Pressure 158/109 H Pulse Oximetry 100 99 99 Oxygen Delivery Room Air Oxygen Flow Rate 01/21/22 14:07 01/21/22 13:15 01/21/22 13:18 Temperature Pulse Rate 74 76 81 Respiratory Rate 17 16 15 Blood Pressure 182/74 H 158/109 H Pulse Oximetry 99 99 100 Oxygen Delivery Oxygen Flow Rate 01/21/22 13:30 01/21/22 13:45 01/21/22 14:04 Temperature Pulse Rate 78 75 80 Respiratory Rate 20 18 17 Blood Pressure Pulse Oximetry 97 97 100 Oxygen Delivery Oxygen Flow Rate 01/21/22 14:05 01/21/22 14:15 01/21/22 14:30 Temperature Pulse Rate 76 80 77 Respiratory Rate 14 15 15 Blood Pressure 182/74 H Pulse Oximetry 99 96 96 Oxygen Delivery Oxygen Flow Rate 01/21/22 14:32 01/21/22 15:02 01/21/22 15:15 Temperature Pulse Rate 80 81 80 Respiratory Rate 17 17 20 Blood Pressure 186/65 H 182/69 H Pulse Oximetry 94 94 98 Oxygen Delivery Oxygen Flow Rate 01/21/22 15:30 01/21/22 15:32 01/21/22 16:20 Temperature 98.8 F Pulse Rate 84 86 77 Respiratory Rate 17 17 18 Blood Pressure 187/89 H 137/64 Pulse Oximetry 100 100 96 Oxygen Delivery Room Air Oxygen Flow Rate 01/21/22 16:35 01/21/22 16:50 01/21/22 17:05 Temperature Pulse Rate 77 73 73 Respiratory Rate 15 16 16 Blood Pressure 179/70 H 185/69 H 185/55 H Pulse Oximetry 92 98 98 Oxygen Delivery Room Air Nasal Cannula Nasal Cannula Oxygen Flow Rate 2 2 01/21/22 17:20 01/21/22 17:35 01/21/22 17:59 Temperature 97.9 F Pulse Rate 75 72 73 Respiratory Rate 14 14 16 Blood Pressure 172/73 H 171/70 H 160/90 H Pulse Oximetry 94 100 100 Oxygen Delivery Nasal Cannula Room Air Oxygen Flow Rate 2 01/21/22 18:12 01/21/22 18:57 01/21/22 19:40 Temperature 98.5 F 97.9 F 98.5 F Pulse Rate 74 78 73 Respiratory Rate 16 16 18 Blood Pressure 160/66 H 147/57 H 146/67 H Pulse Oximetry 100 99 99 Oxygen Delivery Oxygen Flow Rate 01/22/22 00:00 01/22/22 04:00 Temperature 98.2 F 98.5 F Pulse Rate 70 66 Respiratory Rate 16 16 Blood Pressure 125/80 147/62 H Pulse Oximetry 100 100 Oxygen Delivery Oxygen Flow Rate Intake/Output Intake/Output: Intake & Output 01/19/22 01/20/22 01/21/22 01/22/22 23:59 23:59 23:59
--- NOTE | 2022-01-22 07:44 | WPDANESPN ---
Anes - Prog Note Post-Op Date/Time: 01/22/22 07:44 Vital Signs: Last Vital Signs Temp 36.9 C 01/22/22 04:00 Pulse 66 01/22/22 04:00 Resp 16 01/22/22 04:00 BP 147/62 H 01/22/22 04:00 Pulse Ox 100 01/22/22 04:00 O2 Del Method Room Air 01/21/22 17:35 O2 Flow Rate 2 01/21/22 17:20 Pain Score (VAS): 0 I/O: Intake & Output 01/21/22 01/21/22 01/22/22 15:59 23:59 07:59 Intake Total 550 300 550 Output Total 130 Balance 550 170 550 Laboratory Tests 01/22/22 06:01 01/22/22 06:01 01/21/22 01/21/22 01/21/22 11:50 11:50 12:17 WBC 14.5 H RBC 4.96 Hgb 14.2 Hct 45.0 MCV 90.7 MCH 28.6 MCHC 31.6 L RDW 14.5 Plt Count 387 H MPV 9.5 Immature Gran % (Auto) 0.6 H Neut % (Auto) 73.4 H Lymph % (Auto) 14.9 L [place] % (Auto) 9.9 H Eos % (Auto) 0.8 Baso % (Auto) 0.4 Lymph # (Auto) 2.17 [place] # (Auto) 1.4 H Eos # (Auto) 0.1 Baso # (Auto) 0.1 Abs Immat Gran (auto) 0.08 H Absolute Neuts (auto) 10.7 H Absolute Nucleated RBC 0.0 Nucleated RBC % 0.0 Sodium Potassium Chloride Carbon Dioxide Anion Gap BUN Creatinine Estim Creat Clear Calc Estimated GFR Glucose POC Capillary Glucose Hemoglobin A1c 6.4 H Calcium Magnesium Total Bilirubin AST ALT Alkaline Phosphatase Total Protein Albumin Lipase Urine Color Yellow Urine Appearance Slightly cloudy Urine pH 5.5 Ur Specific [place] 1.015 Urine Protein 1+ H Urine Glucose (UA) Negative Urine Ketones Negative Ur Blood (Man) 2+ H Urine Nitrate Positive H Urine Bilirubin Negative Urine Urobilinogen 0.2 Leukocyte Esterase Rfl 2+ H Urine RBC 11-20 H Urine WBC 31-50 H Ur Squamous Epith Cells Moderate H Urine Bacteria 4+ H Hyaline Casts 1-2 Urine Mucus Rare 01/21/22 01/21/22 01/21/22 12:17 16:26 20:15 WBC RBC Hgb Hct MCV MCH MCHC RDW Plt Count MPV Immature Gran % (Auto) Neut % (Auto) Lymph % (Auto) [place] % (Auto) Eos % (Auto) Baso % (Auto) Lymph # (Auto) [place] # (Auto) Eos # (Auto) Baso # (Auto) Abs Immat Gran (auto) Absolute Neuts (auto) Absolute Nucleated RBC Nucleated RBC % Sodium 140 Potassium 3.8 Chloride 101 Carbon Dioxide 29 Anion Gap 10 BUN 33 H D Creatinine 1.30 H Estim Creat Clear Calc 24 Estimated GFR 39 L Glucose 176 H POC Capillary Glucose 138 H 152 H Hemoglobin A1c Calcium 10.1 Magnesium Total Bilirubin 0.8 AST 32 ALT 23 Alkaline Phosphatase 92 Total Protein 9.0 H Albumin 4.8 Lipase 32 Urine Color Urine Appearance Urine pH Ur Specific [place] Urine Protein Urine Glucose (UA) Urine Ketones Ur Blood (Man) Urine Nitrate Urine Bilirubin Urine Urobilinogen Leukocyte Esterase Rfl Urine RBC Urine WBC Ur Squamous Epith Cells Urine Bacteria Hyaline Casts Urine Mucus 01/22/22 01/22/22 06:01 06:01 WBC 9.3 RBC 4.13 L Hgb 12.0 Hct 37.5 MCV 90.8 MCH 29.1 MCHC 32.0 RDW 14.3 Plt Count 291 MPV 9.3 Immature Gran % (Auto) Neut % (Auto) Lymph % (Auto) [place] % (Auto) Eos % (Auto) Baso % (Auto) Lymph # (Auto) [place] # (Auto) Eos # (Auto) Baso # (Auto) Abs Immat Gran (auto) Absolute Neuts (auto) Absolute Nucleated RBC Nucleated RBC % Sodium 137 Potassium 3.7 Chloride 104 Carbon Dioxide 28 Anion Gap 5 L BUN 28 H Creatinine 0.90 Estim Creat Clear Calc 35 Estimated GFR 59 Glucose 157 H POC Capillary Glucose Hemoglobin A1c Calcium 8.7 Magnesium 1.6 Total Bilirubin AST ALT Alkaline Phosphatase Total Protein Albumin Lipase Urine Color Urine Appearance Urine pH Ur Specific [place] Urine Protein Urine Glucose (
--- NOTE | 2022-01-22 09:00 | P.PNIM_ITS ---
Progress Note: A&P Assessment and Plan (1) Left ureteral calculus: Code(s): N20.1 - Calculus of ureter Status: Acute Assessment and Plan: * Abd/Pel ct found a 6mm stone in the distal left ureter causing hydronephrosis * Urology consulted * Ureteral stent placed * Trend urine output * Urine culture pending * Status post cystoscopy with left ureteral stent placement. (2) Hydroureteronephrosis: Code(s): N13.30 - Unspecified hydronephrosis Status: Acute Assessment and Plan: * Related to obstructing ureteral stone * stent has been placed. (3) Urinary tract infection: Code(s): N39.0 - Urinary tract infection, site not specified Status: Acute Assessment and Plan: * Related to ureteral stone. * Continue ceftriaxone, * pending urine culture. * Adjust therapy to culture result (4) Renal insufficiency: Code(s): N28.9 - Disorder of kidney and ureter, unspecified Status: Acute Assessment and Plan: * Likely combination of dehydration and obstructing ureteral stone. * BUN/Cr 28/0.90 * IV fluid rehydration DC'd at this time * Anaya catheter DC'd at this time * monitor strict I/O. * Avoid nephrotoxic agents. * Trend labs (5) Hypertension: Code(s): I10 - Essential (primary) hypertension Status: Acute Assessment and Plan: * BP 147/62 * continue home losartan, amlodipine * Trend BP * adjust therapy as indicated (6) Type 2 diabetes mellitus: Code(s): E11.9 - Type 2 diabetes mellitus without complications Status: Acute Assessment and Plan: * Glucose this am 157 * A1c 6.4 * Hold oral hypoglycemics until she is tolerating a diet * Initiate sliding scale insulin * Accu-Cheks AC/HS * hypoglycemic protocol. (7) Coronary artery disease: Code(s): I25.10 - Atherosclerotic heart disease of [place] coronary artery without angina pectoris Status: Acute Assessment and Plan: * Continue home aspirin * No complaints of chest pain Subjective Date/time seen: 01/22/22 09:00 Interval history: 01/22/22 0900 Patient is doing really well. Patient stated that she just has some soreness of left breast and does not understand why. Patient stated that she is urinating okay Anaya catheter was still a advised him to take it out. Patient denies any chest pain, shortness, nausea, vomiting, diarrhea constipation, sweats, fevers, chills. Urine culture still pending. Patient is very anxious about going home however explain her that we are waiting on the urine culture. 01/21/22? 16:00 This is a a very pleasant 86-year-old female with history of Chin esophagus, GERD, coronary artery disease, hypertension, and diabetes who presented to the emergency department for evaluation of left flank pain, nausea, and vomiting. She has not been feeling well for around 3 days with occasional chills, nausea, vomiting, and left flank pain which she has a difficult time describing. She has been taking ibuprofen and using a topical pain reliever with minimal relief; at times the pain is so bad that she has difficulties sleeping. Over the past 24 hours she has not had any food and was only able to drink a small amount of tea at breakfast time. A CT of the abdomen and pelvis showed a 6 mm stone of the distal left ureter causing moderate hydroureteronephrosis and this apprise as the patient as she has no history of kidney stone and she has not had any urinary
--- NOTE | 2022-01-22 09:00 | PM.IMPN ---
Progress Note: A&P Assessment and Plan (1) Left ureteral calculus: Code(s): N20.1 - Calculus of ureter Status: Acute Assessment and Plan: Abd/Pel ct found a 6mm stone in the distal left ureter causing hydronephrosis Urology consulted Ureteral stent placed Trend urine output Urine culture pending Status post cystoscopy with left ureteral stent placement. (2) Hydroureteronephrosis: Code(s): N13.30 - Unspecified hydronephrosis Status: Acute Assessment and Plan: Related to obstructing ureteral stone stent has been placed. (3) Urinary tract infection: Code(s): N39.0 - Urinary tract infection, site not specified Status: Acute Assessment and Plan: Related to ureteral stone. Continue ceftriaxone, pending urine culture. Adjust therapy to culture result (4) Renal insufficiency: Code(s): N28.9 - Disorder of kidney and ureter, unspecified Status: Acute Assessment and Plan: Likely combination of dehydration and obstructing ureteral stone. BUN/Cr 28/0.90 IV fluid rehydration DC'd at this time Anaya catheter DC'd at this time monitor strict I/O. Avoid nephrotoxic agents. Trend labs (5) Hypertension: Code(s): I10 - Essential (primary) hypertension Status: Acute Assessment and Plan: BP 147/62 continue home losartan, amlodipine Trend BP adjust therapy as indicated (6) Type 2 diabetes mellitus: Code(s): E11.9 - Type 2 diabetes mellitus without complications Status: Acute Assessment and Plan: Glucose this am 157 A1c 6.4 Hold oral hypoglycemics until she is tolerating a diet Initiate sliding scale insulin Accu-Cheks AC/HS hypoglycemic protocol. (7) Coronary artery disease: Code(s): I25.10 - Atherosclerotic heart disease of [place] coronary artery without angina pectoris Status: Acute Assessment and Plan: Continue home aspirin No complaints of chest pain Subjective Date/time seen: 01/22/22 09:00 Interval history: 01/22/22 0900 Patient is doing really well. Patient stated that she just has some soreness of left breast and does not understand why. Patient stated that she is urinating okay Anaya catheter was still a advised him to take it out. Patient denies any chest pain, shortness, nausea, vomiting, diarrhea constipation, sweats, fevers, chills. Urine culture still pending. Patient is very anxious about going home however explain her that we are waiting on the urine culture. 01/21/22? 16:00 This is a a very pleasant 86-year-old female with history of Chin esophagus, GERD, coronary artery disease, hypertension, and diabetes who presented to the emergency department for evaluation of left flank pain, nausea, and vomiting. She has not been feeling well for around 3 days with occasional chills, nausea, vomiting, and left flank pain which she has a difficult time describing. She has been taking ibuprofen and using a topical pain reliever with minimal relief; at times the pain is so bad that she has difficulties sleeping. Over the past 24 hours she has not had any food and was only able to drink a small amount of tea at breakfast time. A CT of the abdomen and pelvis showed a 6 mm stone of the distal left ureter causing moderate hydroureteronephrosis and this apprise as the patient as she has no history of kidney stone and she has not had any urinary symptoms. She is now status post cystoscopy with left retrograde pyelogram and left ureteral stent placement per Dr. Yang and she has little to no pain at the time my evaluation. Review of Systems Review of Systems: All systems reviewed & are unremarkable except as noted in HPI and below Exam Const: General: cooperative, healthy appearing, no acute distress, well developed, alert and awake Nutritional Appearance: well nourished Orientation/consciousness: patient oriented
[2022-01-22] MEDS: ASPIRIN 81 MG ENTERIC TABLET PO (09:02)
[2022-01-22] MEDS: ASCORBIC ACID 500 MG TABLET PO (09:02)
[2022-01-22] MEDS: VENLAFAXINE HCL XR 75 MG CAP.ER.24H 150 MG PO (09:02)
[2022-01-22] MEDS: PANTOPRAZOLE 40 MG TABLET PO (09:02)
[2022-01-22] MEDS: LOSARTAN POTASSIUM 50 MG TABLET PO (09:02)
[2022-01-22] MEDS: amLODIPine BESYLATE 5 MG TABLET PO (09:03)
[2022-01-22] MEDS: MAGNESIUM SULF 4 GM/WATER100ML 4 GM/100 ML BAG IVPB (09:09)
[2022-01-22] MEDS: CHOLECALCIFEROL 1,000 UNITS TABLET 1000 UNITS PO (09:10)
[2022-01-22 12:16] LABS: Glucose Point of Care 144 mg/dl (65-105)
[2022-01-22 14:00] VITALS: BP 131/57; PULSE 72; RESP 18; TEMP 36.1; O2SAT 92
[2022-01-22 16:00] VITALS: BP 127/59; PULSE 83; RESP 20; TEMP 37.2; O2SAT 93
[2022-01-22 17:04] LABS: Glucose Point of Care 135 mg/dl (65-105)
[2022-01-22] MEDS: diphenhydrAMINE HCl INJ 50 MG/ML VIAL 25 MG IV PUSH (17:22)
[2022-01-22 22:00] VITALS: BP 156/69; PULSE 72; RESP 12; TEMP 36.1; O2SAT 97
--- NOTE | 2022-01-23 | ECG_ITS ---
Measurements Intervals [place] Rate: 65 P: 55 AK: 130 QRS: -12 QRSD: 82 T: 69 QT: 417 QTc: 437 Interpretive Statements SINUS RHYTHM LOW QRS VOLTAGE IN PRECORDIAL LEADS NONSPECIFIC T-WAVE ABNORMALITY Electronically Signed On 01-23-2022 12:56:42 CDT by Subhash Fuchs M.D.
[2022-01-23 02:25] VITALS: O2SAT 94
[2022-01-23 06:00] VITALS: BP 158/62; PULSE 65; RESP 18; TEMP 36.2; O2SAT 97
[2022-01-23 06:49] LABS: Basophils Percent Auto 0.2 % (0.2-1.2); Eosinophils Absolute Auto 0.7 K/mm3 (0-0.3); Eosinophils Percent Auto 6.5 % (0-4.4); Hematocrit 39.7 % (37.0-47.0); Hemoglobin 12.8 g/dL (12.0-15.0); Immature Granulocyte Absolute 0.06 K/mm3 (0.00-0.031); Immature Granulocyte Percent A 0.6 % (0-0.5); Lymphocytes Absolute Auto 1.28 K/mm3 (0.9-3.2); Lymphocytes Percent Auto 12.5 % (18.3-44.2); Mean Corpuscular HGB Conc 32.2 g/dl (32-36); Mean Corpuscular Volume 89.8 fl (80-100); Mean Platelet Volume 9.4 fl (7.4-10.4); Monocytes Absolute Auto 0.6 K/mm3 (0.1-0.6); Monocytes Percent Auto 6.1 % (2.6-8.5); Neutrophils Absolute Auto 7.6 K/mm3 (1.3-6.7); Neutrophils Percent Auto 74.1 % (45.5-73.1); Platelet Count Result 335 k/mm3 (150-375); Red Blood Count 4.42 M/mm3 (4.2-5.4); White Blood Count 10.2 K/mm3 (4.5-10.0)
[2022-01-23 07:12] LABS: Alanine Aminotransferase 17 U/L (6-35); Albumin Level 3.9 g/dL (3.5-5.1); Alkaline Phosphatase 65 U/L (38-126); Anion Gap 6 mmol/L (8-16); Aspartate Amino Transferase 27 U/L (14-36); Bilirubin,Total 0.8 mg/dL (0.2-1.3); Blood Urea Nitrogen 25 mg/dL (7-17); Calcium 8.6 mg/dL (8.4-10.2); Carbon Dioxide 32 mmol/L (22-30); Chloride 101 mmol/L (98-107); Estimated CRCL calculation 39 ml/min; Estimated Glomerular Filt Rate > 60; Glucose 160 mg/dL (65-110); Potassium 3.5 mmol/L (3.4-5.0); Sodium 139 mmol/L (137-145)
[2022-01-23 08:22] LABS: Glucose Point of Care 118 mg/dl (65-105)
[2022-01-23] MEDS: PANTOPRAZOLE 40 MG TABLET PO (08:22)
[2022-01-23] MEDS: LOSARTAN POTASSIUM 50 MG TABLET PO (08:22)
[2022-01-23] MEDS: amLODIPine BESYLATE 5 MG TABLET PO (08:22)
[2022-01-23] MEDS: VENLAFAXINE HCL XR 75 MG CAP.ER.24H 150 MG PO (08:22)
[2022-01-23] MEDS: ASPIRIN 81 MG ENTERIC TABLET PO (08:22)
[2022-01-23] MEDS: CHOLECALCIFEROL 1,000 UNITS TABLET 1000 UNITS PO (08:22)
[2022-01-23] MEDS: ASCORBIC ACID 500 MG TABLET PO (08:22)
--- NOTE | 2022-01-23 08:45 | P.DS_ITS ---
DS: Admitting Diagnosis Discharge Date 01/23/22 0845 Admitting Diagnosis Ureteral calculus on the left/hydronephrosis/rash/UTI DS: Discharge Diagnosis Discharge Diagnosis (1) Left ureteral calculus: Code(s): N20.1 - Calculus of ureter Status: Acute Assessment and Plan: * Abd/Pel ct found a 6mm stone in the distal left ureter causing hydronephrosis * Urology consulted * Ureteral stent placed * Trend urine output * Urine culture grew Ecoli, antibiotics changed to levaquin * Status post cystoscopy with left ureteral stent placement. (2) Hydroureteronephrosis: Code(s): N13.30 - Unspecified hydronephrosis Status: Acute Assessment and Plan: * Related to obstructing ureteral stone * stent has been placed. (3) Urinary tract infection: Code(s): N39.0 - Urinary tract infection, site not specified Status: Acute Assessment and Plan: * Related to ureteral stone. * Changed to Levaquin due to allergy * urine culture ecoli grew * Adjust therapy to culture result (4) Renal insufficiency: Code(s): N28.9 - Disorder of kidney and ureter, unspecified Status: Acute Assessment and Plan: * Likely combination of dehydration and obstructing ureteral stone. * BUN/Cr 25/0.80 * IV fluid rehydration DC'd at this time * Anaya catheter DC'd at this time * monitor strict I/O. * Avoid nephrotoxic agents. * Trend labs (5) Hypertension: Code(s): I10 - Essential (primary) hypertension Status: Acute Assessment and Plan: * BP 158/62 * continue home losartan, amlodipine * Trend BP * adjust therapy as indicated (6) Type 2 diabetes mellitus: Code(s): E11.9 - Type 2 diabetes mellitus without complications Status: Acute Assessment and Plan: * Glucose this am 160 * A1c 6.4 * Hold oral hypoglycemics until she is tolerating a diet * Initiate sliding scale insulin * Accu-Cheks AC/HS * hypoglycemic protocol. (7) Coronary artery disease: Code(s): I25.10 - Atherosclerotic heart disease of [place] coronary artery without angina pectoris Status: Acute Assessment and Plan: * Continue home aspirin * No complaints of chest pain (8) Rash due to allergy: Code(s): T78.40XA - Allergy, unspecified, initial encounter; R21 - Rash and other nonspecific skin eruption Status: Acute Assessment and Plan: * Looks to be a reaction to the ceftriaxone * Ceftriaxone DC'd and levaquin started * Continue to trend symptoms * Seems to be getting better * All over trunk and hips, red and hot DS: Summary Hospital Course Hospital Course: Patient is an 86-year-old female with history of Chin's esophagus, GERD, CAD, hypertension, diabetes who presented the emergency room for evaluation of left flank pain accompanied with nausea vomiting. Patient states that she has been dealing with this for about 3 days with occasional chills, nausea, vomiting. She has been taking ibuprofen and using a topical pain reliever however was not working. CT of the abdomen and pelvis showed a 6 mm stone in the left ureter causing hydronephrosis. UA also looked infectious and patient was started on ceftriaxone. Urology was consulted the patient down to surgery for stent placement. While awaiting culture results patient did break out to a big rash that was red and hot mainly on the front of the trunk and wrapped around to her back
--- NOTE | 2022-01-23 08:45 | PM.DS ---
DS: Admitting Diagnosis Discharge Date 01/23/22 0845 Admitting Diagnosis Ureteral calculus on the left/hydronephrosis/rash/UTI DS: Discharge Diagnosis Discharge Diagnosis (1) Left ureteral calculus: Code(s): N20.1 - Calculus of ureter Status: Acute Assessment and Plan: Abd/Pel ct found a 6mm stone in the distal left ureter causing hydronephrosis Urology consulted Ureteral stent placed Trend urine output Urine culture grew Ecoli, antibiotics changed to levaquin Status post cystoscopy with left ureteral stent placement. (2) Hydroureteronephrosis: Code(s): N13.30 - Unspecified hydronephrosis Status: Acute Assessment and Plan: Related to obstructing ureteral stone stent has been placed. (3) Urinary tract infection: Code(s): N39.0 - Urinary tract infection, site not specified Status: Acute Assessment and Plan: Related to ureteral stone. Changed to Levaquin due to allergy urine culture ecoli grew Adjust therapy to culture result (4) Renal insufficiency: Code(s): N28.9 - Disorder of kidney and ureter, unspecified Status: Acute Assessment and Plan: Likely combination of dehydration and obstructing ureteral stone. BUN/Cr 25/0.80 IV fluid rehydration DC'd at this time Anaya catheter DC'd at this time monitor strict I/O. Avoid nephrotoxic agents. Trend labs (5) Hypertension: Code(s): I10 - Essential (primary) hypertension Status: Acute Assessment and Plan: BP 158/62 continue home losartan, amlodipine Trend BP adjust therapy as indicated (6) Type 2 diabetes mellitus: Code(s): E11.9 - Type 2 diabetes mellitus without complications Status: Acute Assessment and Plan: Glucose this am 160 A1c 6.4 Hold oral hypoglycemics until she is tolerating a diet Initiate sliding scale insulin Accu-Cheks AC/HS hypoglycemic protocol. (7) Coronary artery disease: Code(s): I25.10 - Atherosclerotic heart disease of [place] coronary artery without angina pectoris Status: Acute Assessment and Plan: Continue home aspirin No complaints of chest pain (8) Rash due to allergy: Code(s): T78.40XA - Allergy, unspecified, initial encounter; R21 - Rash and other nonspecific skin eruption Status: Acute Assessment and Plan: Looks to be a reaction to the ceftriaxone Ceftriaxone DC'd and levaquin started Continue to trend symptoms Seems to be getting better All over trunk and hips, red and hot DS: Summary Hospital Course Hospital Course: Patient is an 86-year-old female with history of Chin's esophagus, GERD, CAD, hypertension, diabetes who presented the emergency room for evaluation of left flank pain accompanied with nausea vomiting. Patient states that she has been dealing with this for about 3 days with occasional chills, nausea, vomiting. She has been taking ibuprofen and using a topical pain reliever however was not working. CT of the abdomen and pelvis showed a 6 mm stone in the left ureter causing hydronephrosis. UA also looked infectious and patient was started on ceftriaxone. Urology was consulted the patient down to surgery for stent placement. While awaiting culture results patient did break out to a big rash that was red and hot mainly on the front of the trunk and wrapped around to her back. She claimed that it was itchy. Benadryl was given however did not work or was effective. Antibiotics were discontinued and patient was placed on Levaquin p.o. for discharge. Patient states that she is stable for discharge and she is ready to go. She denies any chest pain, shortness of breath, nausea, vomiting, diarrhea, constipation, weakness or fatigue. Rash seems to be dissipating and looks a lot better today. Status at Discharge Functional status at discharge: independent ambulation Overall status at dischar
[2022-01-23] MEDS: levoFLOXacin 750 MG TABLET PO (08:56)
[2022-01-23 11:40] LABS: Glucose Point of Care 230 mg/dl (65-105)
[2022-01-23] MEDS: INSULIN ASPART (*BKC) 100 UNITS/ML SUB-Q (12:53)
== END 2022-01-23 13:05 | disposition home or self-care (01) ==
LOC: ANHED 11:56 → ANH3MEDSUR 15:09
PROVIDERS: Physician Assistant; Urology; Admitting Provider Student in an Organized Health Care Education/Training Program; Emergency Provider Emergency Medicine; PCP Emergency Medicine; Visit Provider Nurse Practitioner
PROC: (CPT 52352; principal; 2022-01-21 16:00)
DX: N20.1 Calculus of ureter (principal); N10 Acute pyelonephritis; N13.30 Unspecified hydronephrosis; E86.0 Dehydration; N39.0 Urinary tract infection, site not specified; N28.9 Disorder of kidney and ureter, unspecified; T78.40XA Allergy, unspecified, initial encounter; R21 Rash and other nonspecific skin eruption; Z79.82 Long term (current) use of aspirin; E11.9 Type 2 diabetes mellitus without complications; E78.5 Hyperlipidemia, unspecified; I10 Essential (primary) hypertension; K21.9 Gastro-esophageal reflux disease without esophagitis; I25.10 Atherosclerotic heart disease of native coronary artery without angina pectoris; E55.9 Vitamin D deficiency, unspecified
CPT/HCPCS: 52332; 36415; 71045; 74176; 74420; 80048; 80053; 81001; 82948; 83036; 83690; 83735; 85025; 85027; 87077; 87086; 87186; 93005; 96361; 96365; 96375; 99285; A9270; C1758; C1769; C2617; G0378; J0696; J1170; J1200; J1815; J2270; J2405; J2704; J3475; J7040; J7120; Q9966

== ENCOUNTER 2022-01-30 11:20 | Outpatient (CLI) | payer OTHER, SELFPAY ==
--- NOTE | ~2022-01-30 | XR_ITS ---
EXAM: XR abdomen/kub 1V DATE: 01/30/2022 11:56 HISTORY: LT URETERAL STONE . COMPARISON: CT abdomen and pelvis 01/21/2022. FINDINGS: Clear lung bases. Normal bowel gas pattern. No organomegaly. Cholelithiasis. Unchanged 6 m m distal left ureteral stone. Left ureteral stent, in good position. Regional bones and soft tissues normal for age. IMPRESSION: Unchanged distal left ureteral stone. Reviewed, dictated and finalized at location K.
== END 2022-01-30 11:21 | disposition home or self-care (01) ==
PROVIDERS: PCP Emergency Medicine; Visit Provider Urology
DX: N20.1 Calculus of ureter (principal)
CPT/HCPCS: 74018

== ENCOUNTER 2022-02-06 00:17 | Day surgery (SDC) | payer OTHER, SELFPAY ==
[2022-01-26 14:06] VITALS: BMI 29.3
--- NOTE | 2022-01-26 14:26 | PC.NURSE ---
Report to the Outpatient Waiting Room, entrance under the green pavilion located off [facility], at time __0730 on date _02/02/22 . OR Time: 929___. - You and your visitor will be asked a series of questions to screen for COVID 19 for your protection. - Only one visitor is allowed at this time. - The patient visitor is requested to leave or wait in car when not with patient. - A mask is required within the hospital. Patients may have clear liquids (water, carbonated beverages, clear teas, apple juice) until 3 hours prior to surgery (0630 AM) with a maximum of 20 ounces. - No food from midnight until time of surgery - Infants may have breast milk until 4 hours before surgery, infant formula 6 hours prior to surgery. - Children will be allowed to drink immediately following surgery. If applicable, please bring a bottle or sippy cup to assist with drinking. Juice, water, soda, and popsicles are readily available. For infants on formula, please bring formula the day of surgery. Pacifiers are allowed. Take the following medications with a SIP of water the morning of surgery: _AMLODIPINE, & ALPRAZOLAM IF NEEDED_ Medications to discontinue per physician _BRIEN STATES LAST DOSE OF ASPIRIN 01/26/22_ Please no make-up, nail icelandic, hairspray, perfume, deodorant, or body powder the day of surgery. No jewelry (including any body piercings) or valuables the day of surgery, leave them at home. Please take a shower or bath the night before, or the morning of, surgery with an antibacterial soap. Wear comfortable, loose fitting clothing. Children are encouraged to wear pajamas. - Jewelry must be removed prior to entering the operating room. Rings and piercings that are not removed may be cut off. - The hospital will not accept responsibility for valuables. - Please leave all valuables, including medications, at home the day of surgery. If you are going home after surgery, a licensed industrial truck driver must drive you home. - NO public transportation without another adult. - We recommend that an adult stay with you for 24 hours following discharge. - We also recommend that you do not drive, make important decision, drink alcoholic beverages, or take any drugs that were not prescribed by your health care provider for at least 24 hours after your discharge time. For Pediatric surgeries, we recommend two adults accompany the child home (only one inside the building at this time). Follow any additional instructions given to you from your surgeon. If you or anyone in your household have experienced Covid symptoms in the past week, please notify your surgeon or the nurse liaison at the phone number below for possible testing. Telephone instructions given to _PT'S DAUGHTER (BRIEN)_and asked if any additional questions and then verbalized understanding. Patient advised to call surgeon office or pre surgery nurse liaison [phone] if any additional questions.
--- NOTE | 2022-02-01 09:37 | PC.NURSE ---
Report to the Outpatient Waiting Room, entrance under the green pavilion located off [facility], at time __30 on date _02/06/22 . OR Time: . - You and your visitor will be asked a series of questions to screen for COVID 19 for your protection. - Only one visitor is allowed at this time. - The patient visitor is requested to leave or wait in car when not with patient. - A mask is required within the hospital. Patients may have clear liquids (water, carbonated beverages, clear teas, apple juice) until 3 hours prior to surgery with a maximum of 20 ounces. - No food from midnight until time of surgery - Infants may have breast milk until 4 hours before surgery, infant formula 6 hours prior to surgery. - Children will be allowed to drink immediately following surgery. If applicable, please bring a bottle or sippy cup to assist with drinking. Juice, water, soda, and popsicles are readily available. For infants on formula, please bring formula the day of surgery. Pacifiers are allowed. Take the following medications with a SIP of water the morning of surgery: _AMLODIPINE,ALPRAZOLAM IF NEEDED,LEVOFLOXACIN Medications to discontinue per physician ___DEBBIE STATES LAST DOSE OF ASPIRIN AND ALL VITAMINS AND SUPPLEMENTS WAS 01/26/22 Date to take last dose Please no make-up, nail burkinan, hairspray, perfume, deodorant, or body powder the day of surgery. No jewelry (including any body piercings) or valuables the day of surgery, leave them at home. Please take a shower or bath the night before, or the morning of, surgery with an antibacterial soap. Wear comfortable, loose fitting clothing. Children are encouraged to wear pajamas. - Jewelry must be removed prior to entering the operating room. Rings and piercings that are not removed may be cut off. - The hospital will not accept responsibility for valuables. - Please leave all valuables, including medications, at home the day of surgery. If you are going home after surgery, a licensed driver wheelchair must drive you home. - NO public transportation without another adult. - We recommend that an adult stay with you for 24 hours following discharge. - We also recommend that you do not drive, make important decision, drink alcoholic beverages, or take any drugs that were not prescribed by your health care provider for at least 24 hours after your discharge time. For Pediatric surgeries, we recommend two adults accompany the child home (only one inside the building at this time). Follow any additional instructions given to you from your surgeon. If you or anyone in your household have experienced Covid symptoms in the past week, please notify your surgeon or the nurse liaison at the phone number below for possible testing. Telephone instructions given to _BRIEN DAVID'S DAUGHTER and asked if any additional questions and then verbalized understanding. Patient advised to call surgeon office or pre surgery nurse liaison [phone] if any additional questions.
--- NOTE | 2022-02-01 09:42 | PC.NURSE ---
BRIEN FRANKIE'S DAUGHTER STATES NO CHANGE IN HEALTH HX SINCE LAST INTERVIEW ON 01/26/22
[2022-02-06] VITALS (11 sets, daily range): BP systolic 138–185; BP diastolic 65–80; PULSE 61–80; RESP 10–20; TEMP 36.5–36.6; O2SAT 96–100
--- NOTE | ~2022-02-06 | XR_ITS ---
EXAMINATION: XR retrograde pyelo w/stent LT DATE: 02/06/2022 10:28 INDICATION: Left internal ureteral stent placement TECHNIQUE: Fluoroscopic images from a left internal ureteral stent placement are submitted for review . 22 seconds of fluoroscopy time. 5 fluoroscopic images FINDINGS: There is a left double-J internal ureteral stent projecting in expected position, with proximal Moville loop at the level of the renal pelvis and distal loop in the pelvis within the bladder lumen. IMPRESSION: 1. Left internal ureteral stent placement. Please refer to real-time procedural findings for detail s. Reviewed, dictated and finalized at location A. IMPRESSION: 1. Left internal ureteral stent placement. Please refer to real-time procedur al findings for details.
--- NOTE | 2022-02-06 06:58 | WPDANESEPPF ---
Anes - Initial Pre Proc Eval Procedure: Operation Date: 02/06/22 09:30 Proposed Procedures p Cystoscopy, Left Ureteroscopy, Left Retrograde Pyelogram, Left Stone Extraction, Left Stent Exchange, Holmium Laser - Arnie Mcfarland MD Date/Time: 02/06/22 06:58 Surgeon: Arnie Mcfarland MD Pre Op Diagnosis: Left Ureteral Stone Patient Data Age: 86 Gender: F Height: 1.5 m Weight: 65.9 kg Allergies Allergy/AdvReac Type Severity Reaction Status Date / Time Penicillins Allergy Mild Rash Verified 02/06/22 07:36 ceftriaxone AdvReac Mild Rash Verified 02/06/22 07:36 Home Medications Medication Instructions Recorded Confirmed Type ascorbic acid (vitamin C) 500 mg 500 mg PO QAM 07/31/19 02/01/22 History capsule,extended release (Vitamin C) aspirin 81 mg tablet,delayed 81 mg PO DAILY 07/31/19 02/01/22 History release lancets 33 gauge (Micro Thin #100 ea 02/17/21 02/01/22 Rx Lancets) blood sugar diagnostic (Contour See Rx Instructions .Route 08/14/21 02/01/22 Rx Next Test Strips) .COMPLEX #100 strips alprazolam 0.5 mg tablet (Xanax) 0.5 mg PO BID PRN anxiety #60 tabs 10/11/21 02/06/22 Rx cholecalciferol (vitamin D3) 25 25 mcg PO QAM 12/28/21 02/06/22 History mcg (1,000 unit) capsule alendronate 70 mg tablet 70 mg PO WEEKLY 01/21/22 02/06/22 History amlodipine 5 mg tablet (Norvasc) 5 mg PO QAM 01/26/22 02/06/22 History glimepiride 2 mg tablet 2 mg QAM 01/26/22 02/06/22 History levofloxacin 750 mg tablet 750 mg PO EVERY OTHER DAY 01/26/22 02/06/22 History losartan 50 mg tablet 50 mg PO QAM 01/26/22 02/06/22 History metformin 500 mg tablet 500 mg BID 01/26/22 02/06/22 History omeprazole 40 mg capsule,delayed 40 mg QAM 01/26/22 02/06/22 History release Patient hx anesthesia problems: none Family hx anesthesia problems: none Results Review: All pre-operative results and documents have been reviewed as part of the pre-operative evaluation. [facility] Past Medical History Medical History (Updated 01/23/22 @ 11:48 by YAMILETH Jimenez) Anxiety Arthritis Chin's esophagus Coronary artery disease Duodenal arteriovenous malformation Gastroesophageal reflux disease Hiatal hernia Hyperlipidemia Hypertension Type 2 diabetes mellitus Vitamin D deficiency disease Surgical History Surgical History (Updated 01/21/22 @ 16:15 by Jada Cooper PA-C) History of appendectomy History of colonoscopy History of coronary artery bypass graft x 2 (1999) History of esophagogastroduodenoscopy History of hysterectomy History of tonsillectomy Family History Family History Father Cerebrovascular accident, Onset Age: 83 Family history of diabetes mellitus in first degree relative Mother Family history of heart disease in male family member before age 55, Onset Age: 82 Family history of kidney disease, Onset Age: 82 Cerebrovascular accident Cancer Sibling Family history of lung disease, Onset Age: 65 Social History Social History (Updated 01/21/22 @ 21:14 by Jada Cooper PA-C) Social History: Surrogate decision maker: Randi Evans, daughter. Code status: Full code. Smoking packs per day: 1 Smoking cigarettes per day: 20.0 Years smoked: 20 Smoking pack-years: 20.00 Smoking status: Former smoker Tobacco type: cigarettes Second hand tobacco smoke exposure: No Smoking end date: 07/29/98 Alcohol intake: never Substance use: never Substance use type: does not use Living arrangements: with family Additional living arrangements comments: The patient lives in [place] with her daughter. 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 Spiritual care concerns: No Anes - Eval Final PreProcedure Day of Procedure 02/06/22 06:58 Patient weight: overweight Heart: regular rate and rhythm Lungs: clear to auscultation Airway:
[2022-02-06] MEDS: LACTATED RINGERS 1,000 ML 30 ML IV CONT (07:55)
[2022-02-06 08:06] LABS: Glucose Point of Care 110 mg/dl (65-105)
--- NOTE | 2022-02-06 08:18 | WPDHPUPDATE1 ---
History and Physical Update Update Date/Time: 02/06/22 08:18 History and Physical has been reviewed, including an updated exam of the patient. There are NO changes in the patient's condition. Risks, benefits, and alternatives have been discussed and questions answered. Patient agrees to proceed with procedure.
[2022-02-06] MEDS: levoFLOXacin 500 MG/D5W 100 ML 500 MG/100 ML BAG 100 MG IVPB (09:55)
[2022-02-06] MEDS: LIDOCAINE HCL 2% GEL UROJET 10 ML PKG MUCOUS MEM (10:12)
--- NOTE | 2022-02-06 10:24 | P.OP_ITS ---
Procedure Note - Detailed Date of Procedure 02/06/22 Pre-op Diagnosis Left Ureteral Stone Post-op Diagnosis Same Procedure Performed Cystoscopy, left retrograde pyelogram, left ureteroscopy with holmium laser of ureteral calculus, stone extraction, left stent exchange 4.8 Trinidadian contour Surgeon Arnie Mcfarland MD Description of Procedure Patient is taken to the operative suite and correctly identified. Once anesthesia was obtained she was placed in dorsal lithotomy position and prepped and draped usual sterile fashion. Twenty-two Trinidadian scope was inserted into the bladder. The stone was visualized. It started to calcified. We grasped it and removed it. A rigid ureteral scope was then inserted into the left ureteral o rifice and a guide wire was replaced. The stone was visualized. Using a 272 micron fiber we lasered the stone into multiple pieces. The largest pieces were sent for analysis. Reinspection revealed no residual stones. Pyelogram was then performed to confirm placement the stent. 4.8 Trinidadian contour stent was then placed with the proximal end coiled in the left renal pelvis and the distal in the bladder. Bladder was drained. 2% viscous lidocaine was inserted into the urethra. Patient is taken recovery stable condition. She will follow-up in 1 week for stent removal. Drains Yes Packing No Pathology Yes Complications No immediate complications Condition Stable Disposition PACU
[2022-02-06 10:48] LABS: Glucose Point of Care 98 mg/dl (65-105)
== END 2022-02-06 12:45 | disposition home or self-care (01) ==
PROVIDERS: PCP Emergency Medicine; Visit Provider Urology
PROC: (CPT 52352; principal; 2022-02-06 09:30)
PROC: (CPT 52356; 2022-02-06 09:30)
DX: N20.1 Calculus of ureter (principal); I10 Essential (primary) hypertension; E11.9 Type 2 diabetes mellitus without complications; E78.5 Hyperlipidemia, unspecified; E55.9 Vitamin D deficiency, unspecified; K21.9 Gastro-esophageal reflux disease without esophagitis; I25.10 Atherosclerotic heart disease of native coronary artery without angina pectoris; F41.9 Anxiety disorder, unspecified; Z95.1 Presence of aortocoronary bypass graft; Z87.891 Personal history of nicotine dependence; Z79.84 Long term (current) use of oral hypoglycemic drugs; Z79.82 Long term (current) use of aspirin
CPT/HCPCS: 52356; 74420; 82365; 82948; 88300; A9270; C1758; C1769; C2617; J1956; J3010; J7120; Q9966

== ENCOUNTER 2022-08-24 13:42 | Outpatient (CLI) | payer OTHER, SELFPAY ==
--- NOTE | ~2022-08-24 | XR_ITS ---
EXAMINATION: XR ribs BI 3V w CXR 2V INDICATION: Pleurodynia TECHNIQUE: PA and lateral views of the chest and 3 views of the bilateral ribs were obtained. COMPARISON: 01/22/2022 FINDINGS: The lungs are free of acute opacities. No pleural effusion or pneumothorax. The cardiomedia stinal silhouette is normal. Median sternotomy wires are consistent with prior cardiac surgery. There is moderate thoracic spondylosis. There is mild cortical irregularity at the anterolateral aspect of the right seventh rib. IMPRESSION: 1. Mild cortical irregularity at the anterolateral aspect of the left seventh rib which could reflect nondisplaced fracture. 2. No acute cardiopulmonary abnormality. Reviewed, dictated and finalized at location F. CODING MACHINE OPERATOR IMPRESSION: 1. Mild cortical irregularity at the anterolateral aspect of the left seventh r ib which could reflect nondisplaced fracture. 2. No acute cardiopulmonary abnormality.
== END 2022-08-24 13:43 | disposition home or self-care (01) ==
PROVIDERS: PCP Physician Assistant; Visit Provider Physician Assistant
DX: R07.81 Pleurodynia (principal)
CPT/HCPCS: 71046; 71110

== ENCOUNTER 2022-08-27 13:16 | Emergency (ER) | payer OTHER, SELFPAY ==
--- NOTE | ~2022-08-27 | CT_ITS ---
EXAMINATION: CT chst ab pel thor lum wo DATE: 08/27/2022 14:13 INDICATION: Right rib pain and thoracic and lumbar spine pain post recent fall. TECHNIQUE: Computed tomography (CT) of the chest, abdomen, pelvis as well as of the thoracic and lumb ar spine was performed without intravenous contrast. Automated exposure control and iterative reconst ruction technique were employed. The dose-length product was 580.04 mGy-cm. COMPARISON: CT abdomen and pelvis dated 01/21/2022, cervical spine CT dated 05/20/2021 and PET/CT date d 04/14/2009 FINDINGS: CHEST CT: 7 mm left lower lobe nodule and a couple 4-5 mm nodules in the right middle lobe, each unchanged sinc e 2008 consistent with old granulomatous disease. Discoid atelectasis in the posterior lingula along the major fissure. No pneumonia, pulmonary edema, pleural effusion or pneumothorax. Heart size is nor mal. Atherosclerotic and/or artery calcification. Aortic valve calcific location. Median sternotomy w ires and mediastinal surgical clips are consistent with prior coronary artery bypass grafting. Thorac ic aorta is normal in caliber. No pathologically enlarged thoracic lymphadenopathy. Nonbridging callu s formation at still ununited fractures of the anterior right seventh and eighth ribs. No acute rib f ractures identified. ABDOMEN/PELVIS CT: Liver, spleen, bilateral adrenal glands and right kidney are normal. 1 cm left freddie al cyst. Numerous calcified gallstones along the otherwise normal-appearing gallbladder with no peric holecystic inflammatory stranding to suggest acute cholecystitis. There are scattered dystrophic calc ification in the pancreatic body and tail, likely sequela of chronic pancreatitis. There is mild colo gloria diverticulosis with a sigmoid predominance. There is no adjacent inflammatory change to suggest diverticulitis. No bowel obstruction. Bladder is normal. The uterus is not identified and has likely been surgically resected. There is calcified atherosclerosis of the aorta and many of the other arter ies. No pathologically enlarged abdominal or pelvic lymphadenopathy. THORACIC SPINE CT: Mild thoracic kyphosis. No significant change in severe lower cervical spondylosis including 3 mm ant erolisthesis C3 on C4. Age indeterminate mild T1 compression fracture with 20% anterior vertebral bod y height loss which is new since 05/20/2021. Acute appearing compression fracture with 20% anterior t o central vertebral body height loss and subtle linear lucent fracture line along the inferior endpla te of T10. Moderate disc height loss at multiple levels in the midthoracic spine with mild disc heigh t loss at a few levels in the upper and lower thoracic spine. There appear to be a few disc protrusio ns along the thoracic spine the most prominent at T5-T6 and through T7-T8 resulting in mild central c anal stenosis. Multilevel bilateral thoracic facet osteoarthritis, severe in the upper thoracic and m ild in the mid and lower thoracic spine. This continues to multilevel mild neural foraminal stenosis bilaterally in the upper thoracic spine. LUMBAR SPINE CT: 1 mm anterolisthesis L4 on L5. Vertebral body heights are normal. No fracture. Severe disc height los s with vacuum phenomena at L5-S1. Remaining disc heights are normal. There are disc bulges at L2-L3 t hrough L5-S1 resulting in multilevel mild central canal stenosis. Severe facet osteoarthritis bilater ally at L4-L5 and L5-S1, moderate facet osteoarthritis bilaterally at L2-L3 and on the right at L3-L4 and mild facet osteoarthritis at the remaining lumbar levels. This contributes to moderate neural fo raminal stenosis bilaterally at L5-S1 and on the left at L4-L5 and mild neural foraminal stenosis at the remaining lumbar levels. IMPRESSION: 1. Acute appearing T10 compression fracture with mild anterior to central vertebral body height loss and age-indeterminate T1 compression fracture also with mild a
[2022-08-27 13:20] VITALS: BP 174/104; PULSE 87; RESP 18; TEMP 36.2; O2SAT 98
--- NOTE | 2022-08-27 13:42 | ED.BACK ---
HPI - Back Pain/Injury General Chief Complaint: Back Pain/Injury Stated Complaint: fall, rib pain Time Seen by Provider: 08/27/22 13:37 Source: patient and family Mode of arrival: ambulatory Limitations: no limitations History of Present Illness HPI Narrative: Patient is an 87-year-old female with a history of type 2 diabetes, hypertension, acid reflux, depression, presenting to the emergency department for evaluation of right lower chest wall pain, flank pain following a ground-level fall. Patient states that she fell approximately 2 weeks ago when she stood up suddenly at home. Patient states that she often loses her balance and has a history of frequent falls. Patient was seen for similar pain and had negative x-ray imaging. Patient has been taking Tylenol without much improvement in her symptoms. Patient states pain is aching in nature, worsened with movement in the right upper back, but she does also experience right-sided lower back pain. Patient denies any frontal chest pain, cough or shortness of breath. She denies any frontal abdominal pain, nausea or vomiting. She denies hematuria or dysuria. Patient states she does have a history of nephrolithiasis and is wondering if this is consistent with kidney stone pain. Patient denies any colicky nature to the pain. Patient declines wanting any additional pain medication. Daughter is present, states they want to ensure that she does not have an active kidney stone causing symptoms. Related Data Home Medications Medication Instructions Recorded Confirmed ascorbic acid (vitamin C) 500 mg 500 mg PO QAM 07/31/19 08/08/22 capsule,extended release (Vitamin C) aspirin 81 mg tablet,delayed 81 mg PO DAILY 07/31/19 08/08/22 release cholecalciferol (vitamin D3) 25 25 mcg PO QAM 12/28/21 08/08/22 mcg (1,000 unit) capsule glimepiride 2 mg tablet 2 mg QAM 01/26/22 08/08/22 Lactobacills gasseri-Bifidobac cap PO 05/01/22 08/08/22 bifidum,longum 1.5 billion cell capsule ([employer] [place]) biotin 10,000 mcg capsule mcg PO 05/01/22 08/08/22 multivitamin (Daily Multi-Vitamin 1 tablet PO DAILY 05/01/22 08/08/22 tablet) Allergies Allergy/AdvReac Type Severity Reaction Status Date / Time Penicillins Allergy Mild Rash Verified 08/07/22 15:05 ceftriaxone AdvReac Mild Rash Verified 08/07/22 15:05 Review of Systems Review of Systems: CONSTITUTIONAL: Denies fever, chills, or sweats. EYES: Denies visual changes, redness, or discharge. ENT: Denies rhinorrhea, congestion, sore throat, or otalgia. CARDIOVASCULAR: Denies chest pain, palpitations, or edema. RESPIRATORY: Denies cough or dyspnea. GASTROINTESTINAL: Denies abdominal pain, nausea, vomiting, or diarrhea. GENITOURINARY: Denies dysuria or hematuria. SKIN: Denies rash or itching. MUSCULOSKELETAL: Reports right-sided upper and lower back pain, denies hip pain, denies extremity pain NEUROLOGIC: Denies headache, numbness, or weakness. PSYCHIATRIC: History of depression PENDING SALE TO [facility] Past Medical History Medical History Anxiety Arthritis Chin's esophagus Coronary artery disease Duodenal arteriovenous malformation Gastroesophageal reflux disease Hiatal hernia Hyperlipidemia Hypertension Type 2 diabetes mellitus Vitamin D deficiency disease Surgical History Surgical History History of appendectomy History of colonoscopy History of coronary artery bypass graft x 2 (1999) History of esophagogastroduodenoscopy History of hysterectomy History of tonsillectomy Family History Family History Father Cerebrovascular accident, Onset Age: 83 Family history of diabetes mellitus in first degree relative Diabetes mellitus Hypertension Mother Family history of heart disease in male family member before age 55, Onset Age: 82 Family history of kidmisha
[2022-08-27 15:02] LABS: Basophils Absolute Auto 0.1 K/mm3 (0.0-0.1); Basophils Percent Auto 0.5 % (0.2-1.2); Eosinophils Absolute Auto 0.3 K/mm3 (0-0.3); Eosinophils Percent Auto 2.7 % (0-4.4); Hemoglobin 13.8 g/dL (12.0-15.0); Immature Granulocyte Absolute 0.05 K/mm3 (0.00-0.031); Immature Granulocyte Percent A 0.5 % (0-0.5); Lymphocytes Absolute Auto 2.59 K/mm3 (0.9-3.2); Lymphocytes Percent Auto 25.3 % (18.3-44.2); Mean Corpuscular HGB Conc 31.4 g/dl (32-36); Mean Corpuscular Hemoglobin 28.9 pg (26-34); Mean Corpuscular Volume 92.1 fl (80-100); Mean Platelet Volume 9.1 fl (7.4-10.4); Monocytes Absolute Auto 0.7 K/mm3 (0.1-0.6); Neutrophils Absolute Auto 6.5 K/mm3 (1.3-6.7); Platelet Count Result 363 k/mm3 (150-375); Red Blood Count 4.78 M/mm3 (4.2-5.4); Red Cell Distribution Width 13.6 % (11.5-14.5); White Blood Count 10.2 K/mm3 (4.5-10.0)
[2022-08-27 15:03] LABS: Appearance Urine Slightly Cloudy (Clear); Bilirubin Urine Negative (Negative); Blood Urine Negative (Negative); Color Urine Yellow (Yellow); Glucose Urine UA Negative (Negative); Ketones Urine Negative (Negative); Leukocyte Esterase Ur Trace LEU/UL (Negative); Nitrate Urine Negative (Negative); Protein Urine 1+ mg/dL (Negative); Specific Grav Ur >= 1.030 (1.001-1.035); Urobilinogen Urine 0.2 mg/dL (<2.0)
[2022-08-27 15:06] LABS: Bacteria Urine Trace /hpf; Mucus Urine Rare /lpf; Squamous Epithelial Cell Urine Many /hpf (Few); WBC Urine 16-20 /hpf
[2022-08-27 15:15] LABS: Anion Gap 7 mmol/L (8-16); Blood Urea Nitrogen 28 mg/dL (7-17); Calcium 9.9 mg/dL (8.4-10.2); Carbon Dioxide 32 mmol/L (22-30); Chloride 98 mmol/L (98-107); Estimated Glomerular Filt Rate > 60; Glucose 242 mg/dL (65-110); Sodium 137 mmol/L (137-145)
[2022-08-27 15:45] LABS: Add Urine Microscopic? YES
== END 2022-08-27 15:52 | disposition home or self-care (01) ==
PROVIDERS: Emergency Provider Emergency Medicine; PCP Physician Assistant
DX: S22.070A Wedge compression fracture of T9-T10 vertebra, initial encounter for closed fracture (principal); R29.6 Repeated falls; E11.9 Type 2 diabetes mellitus without complications; I10 Essential (primary) hypertension; I25.10 Atherosclerotic heart disease of native coronary artery without angina pectoris; E78.5 Hyperlipidemia, unspecified; E55.9 Vitamin D deficiency, unspecified; K21.9 Gastro-esophageal reflux disease without esophagitis; K22.70 Barrett's esophagus without dysplasia; K44.9 Diaphragmatic hernia without obstruction or gangrene; M19.90 Unspecified osteoarthritis, unspecified site; Z95.1 Presence of aortocoronary bypass graft; Z90.710 Acquired absence of both cervix and uterus; Z87.442 Personal history of urinary calculi; Z87.891 Personal history of nicotine dependence; Z79.84 Long term (current) use of oral hypoglycemic drugs; Z79.82 Long term (current) use of aspirin; K80.20 Calculus of gallbladder without cholecystitis without obstruction; M47.812 Spondylosis without myelopathy or radiculopathy, cervical region; M47.817 Spondylosis without myelopathy or radiculopathy, lumbosacral region; M47.814 Spondylosis without myelopathy or radiculopathy, thoracic region; W18.39XA Other fall on same level, initial encounter
CPT/HCPCS: 36415; 71250; 72128; 72131; 74176; 80048; 81001; 85025; 87077; 87086; 87186; 99284

== ENCOUNTER 2022-09-27 10:37 | Outpatient (CLI) | payer OTHER, SELFPAY ==
[2022-09-27 14:21] LABS: Appearance Urine Cloudy (Clear); Bacteria Urine None Seen /hpf; Bilirubin Urine Negative (Negative); Blood Urine Negative (Negative); Color Urine Dark Yellow (Yellow); Glucose Urine UA Negative (Negative); Ketones Urine Trace mg/dL (Negative); Leukocyte Esterase Ur 1+ LEU/UL (NEGATIVE); Mucus Urine Present /lpf; Nitrate Urine Negative (Negative); Non Pathogenic Casts 0-2; Protein Urine Trace mg/dL (Negative); RBC Urine 0-2 /hpf (0-2); Specific Grav Ur 1.021 (1.001-1.035); Squamous Epithelial Cell Urine Few /hpf (Few); Uric Acid Crystals Urine Present /hpf; Urobilinogen Urine 0.2 mg/dL (<2.0)
[2022-09-27 14:30] LABS: Add Urine Microscopic? YES
== END 2022-09-27 10:38 | disposition home or self-care (01) ==
LOC: ANHLAB 06-19 10:37
PROVIDERS: PCP Physician Assistant; Visit Provider Physician Assistant
DX: R82.90 Unspecified abnormal findings in urine (principal)
CPT/HCPCS: 81001; 87077; 87086; 87186

== ENCOUNTER 2022-10-17 17:01 | Observation (INO) | payer OTHER, SELFPAY ==
--- NOTE | ~2022-10-17 | MR_ITS ---
MRI of the brain Clinical History: Inability to walk Technique: Axial and sagittal T1-weighted images were acquired. These were followed by axial T2-weigh leah, diffusion weighted, gradient, and FLAIR images. Following intravenous administration of 12 cc Mu ltiHance gadolinium, T1-weighted fat-sat imaging was performed in the axial and coronal planes. Findings: There is no acute infarct, intracranial hemorrhage, or mass lesion. There are moderate to s evere chronic white matter changes in the periventricular white matter bilaterally. Ventricles and subarachnoid spaces are dilated. Orbits are unremarkable. Paranasal sinuses and mastoi d air cells are essentially clear. Major intracranial flow voids appear intact. Sagittal midline structures are intact. No abnormal postcontrast enhancement. IMPRESSION: No acute intracranial abnormality seen. Moderate to advanced chronic white matter changes and moderate generalized atrophy. Reviewed, dictated and finalized at [facility]. IMPRESSION: No acute intracranial abnormality seen. Moderate to advanced chronic white matter changes and moderate generalized atro phy.
--- NOTE | ~2022-10-17 | CT_ITS ---
EXAMINATION: CT brain wo con DATE: 10/17/2022 20:54 INDICATION: leg weakness . TECHNIQUE: Computed tomography (CT) of the head was performed without intravenous contrast. The mA wa s adjusted according to patient size. Iterative reconstruction technique was employed. The dose-lengt h product was 605.33 mGy-cm. COMPARISON: 05/20/2021. FINDINGS: No acute intracranial hemorrhage or extra-axial fluid collection. No hydrocephalus, mass, or herniation. No acute ischemic infarct. Unremarkable dural venous sinus attenuation. No acute osseous abnormality. Nodular mucosal thickening in the ethmoid air cells and anterior maxillary sinuses, the remaining aer ated spaces are clear. Moderate atrophy and chronic white matter change. Atherosclerotic intracranial calcification. Bilater al lens replacements. IMPRESSION: No acute intracranial process. Reviewed, dictated and finalized at [facility].
[2022-10-17 17:09] VITALS: BP 164/70; PULSE 81; RESP 16; TEMP 36.6; O2SAT 99
[2022-10-17 17:26] VITALS: BP 150/64; RESP 15; TEMP 36.8; O2SAT 96
--- NOTE | 2022-10-17 17:39 | PC.NURSE ---
When asked when patient fell if her legs felt weak or numb and tingly the patient states they felt more weak
--- NOTE | 2022-10-17 17:46 | ECG_ITS ---
Measurements Intervals [place] Rate: 77 P: 66 DC: 137 QRS: -7 QRSD: 84 T: 35 QT: 371 QTc: 422 Interpretive Statements SINUS RHYTHM DELAYED PRECORDIAL R/S TRANSITION BASELINE ARTIFACT- I, III, AVR, AVL, AVF, V2, V5 BORDERLINE ECG COMPARED TO ECG 01/23/2022 11:08:55 NO SIGNIFICANT CHANGES Electronically Signed On 10-17-2022 20:57:34 CDT by Arnol Sanford D.O.
[2022-10-17 18:18] LABS: Basophils Absolute Auto 0.1 K/mm3 (0.0-0.1); Basophils Percent Auto 0.5 % (0.2-1.2); Eosinophils Absolute Auto 0.3 K/mm3 (0-0.3); Eosinophils Percent Auto 2.2 % (0-4.4); Hematocrit 42.8 % (37.0-47.0); Immature Granulocyte Absolute 0.05 K/mm3 (0.00-0.031); Immature Granulocyte Percent A 0.4 % (0-0.5); Lymphocytes Absolute Auto 2.42 K/mm3 (0.9-3.2); Lymphocytes Percent Auto 20.8 % (18.3-44.2); Mean Corpuscular HGB Conc 32.7 g/dl (32-36); Mean Corpuscular Hemoglobin 29.6 pg (26-34); Mean Corpuscular Volume 90.5 fl (80-100); Monocytes Absolute Auto 0.8 K/mm3 (0.1-0.6); Monocytes Percent Auto 6.6 % (2.6-8.5); Neutrophils Absolute Auto 8.1 K/mm3 (1.3-6.7); Neutrophils Percent Auto 69.5 % (45.5-73.1); Platelet Count Result 343 k/mm3 (150-375); Red Blood Count 4.73 M/mm3 (4.2-5.4); Red Cell Distribution Width 13.7 % (11.5-14.5); White Blood Count 11.6 K/mm3 (4.5-10.0)
[2022-10-17 18:59] LABS: Alanine Aminotransferase 28 U/L (6-35); Albumin Level 5.1 g/dL (3.5-5.1); Alkaline Phosphatase 113 U/L (38-126); Anion Gap 10 mmol/L (8-16); Aspartate Amino Transferase 33 U/L (14-36); Bilirubin,Total 0.8 mg/dL (0.2-1.3); Blood Urea Nitrogen 17 mg/dL (7-17); Calcium 10.2 mg/dL (8.4-10.2); Carbon Dioxide 26 mmol/L (22-30); Chloride 105 mmol/L (98-107); Estimated Glomerular Filt Rate > 60; Glucose 111 mg/dL (65-110); Potassium 4.3 mmol/L (3.4-5.0); Sodium 141 mmol/L (137-145)
[2022-10-17 19:56] LABS: Appearance Urine Clear (Clear); Bilirubin Urine Negative (Negative); Blood Urine Negative (Negative); Color Urine Yellow (Yellow); Glucose Urine UA Negative (Negative); Ketones Urine Negative (Negative); Leukocyte Esterase Ur Negative LEU/UL (Negative); Nitrate Urine Negative (Negative); Protein Urine Negative (Negative); Specific Grav Ur 1.011 (1.001-1.035); Urobilinogen Urine 0.2 mg/dL (<2.0)
[2022-10-17 20:10] LABS: Add Urine Microscopic? NO
--- NOTE | 2022-10-17 20:46 | ED.GENADULT ---
HPI - General Adult General Chief complaint: Fall Stated complaint: weakness/multiple falls Time Seen by Provider: 10/17/22 17:27 History of Present Illness HPI narrative: Patient is an 87-year-old female who presents ER with weakness. She reports that she has had 2 falls today because her legs are too weak to hold her up. She reports she can pull her legs up and move them without issue however when it comes to supporting her weight she cannot do it any longer. She reports similar issues with her hands where she can move everything on command but then has some trouble with coordination. No dizziness. No lateralizing weakness. Patient typically ambulatory without a walker and requires no assistance. 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 Denies urinary frequency urgency or dysuria. No new confusion. Related Data Home Medications Medication Instructions Recorded Confirmed ascorbic acid (vitamin C) 500 mg 500 mg PO QAM 07/31/19 09/28/22 capsule,extended release (Vitamin C) aspirin 81 mg tablet,delayed 81 mg PO DAILY 07/31/19 09/28/22 release cholecalciferol (vitamin D3) 25 25 mcg PO QAM 12/28/21 09/28/22 mcg (1,000 unit) capsule glimepiride 2 mg tablet 2 mg QAM 01/26/22 09/28/22 Lactobacills gasseri-Bifidobac cap PO 05/01/22 09/28/22 bifidum,longum 1.5 billion cell capsule ([employer]) biotin 10,000 mcg capsule mcg PO 05/01/22 09/28/22 multivitamin (Daily Multi-Vitamin 1 tablet PO DAILY 05/01/22 09/28/22 tablet) Allergies Allergy/AdvReac Type Severity Reaction Status Date / Time Penicillins Allergy Mild Rash Verified 09/27/22 09:00 ceftriaxone AdvReac Mild Rash Verified 09/27/22 09:00 Review of Systems Review of Systems: All systems reviewed & are unremarkable except as noted in HPI and below Constitutional: Constitutional: Denies chills, Denies fatigue and Denies fever(s) ENT: Denies nasal congestion and Denies sore throat Respiratory: Respiratory: Denies cough and Denies dyspnea Genitourinary: Genitourinary: Denies nocturia and Denies dysuria Neurologic: Denies syncope, Denies headache(s), Denies numbness and Reports weakness PMFSH Past Medical History Medical History Anxiety Arthritis Chin's esophagus Coronary artery disease Duodenal arteriovenous malformation Gastroesophageal reflux disease Hiatal hernia Hyperlipidemia Hypertension Type 2 diabetes mellitus Vitamin D deficiency disease Surgical History Surgical History History of appendectomy History of colonoscopy History of coronary artery bypass graft x 2 (1999) History of esophagogastroduodenoscopy History of hysterectomy History of tonsillectomy Family History Family History Father Cerebrovascular accident, Onset Age: 83 Family history of diabetes mellitus in first degree relative Diabetes mellitus Hypertension Mother Family history of heart disease in male family member before age 55, Onset Age: 82 Family history of kidney disease, Onset Age: 82 Cerebrovascular accident Cancer Hypertension Heart disease Sibling Family history of lung disease, Onset Age: 65 Cerebrovascular accident Hypertension Grandparent Hypertension Heart disease Social History Social History Social History: Surrogate decision maker: Randi Evans, daughter. Code status: Full code. Smoking packs per day: 1 Smoking cigarettes per day: 20.0 Years smoked: 20 Smoking pack-years: 20.00 Smoking status: Former smoker Tobacco type: cigarettes Second hand tobacco smoke exposure: No Smoking end date: 07/29/98 Alcohol intake: never Substance use: never Substance use type: does not use Lack of Transportation:
--- NOTE | 2022-10-17 20:48 | PM.IMHP ---
H&P: HPI History of Present Illness Date/Time: 10/17/22 20:48 Chief Complaint: Weakness Narrative: This is an 87-year-old female with past medical history significant for hypertension, type diabetes mellitus, GERD, degenerative joint disease. Patient presents to the emergency room due to recurrent falls bilateral upper and lower extremity weakness however no focal sensorimotor deficit or weakness patient states that she is unable to get up from sitting position and has had recurrent falls denies any fevers, rigors, chills, runny nose, cough, sputum production, nausea, vomiting, abdominal pain, diarrhea. Preliminary workup has been essentially nonrevealing. Patient is been admitted for further evaluation management and treatment. Review of Systems Review of Systems: Recurrent falls, bilateral upper and lower extremity weakness. Constitutional: Constitutional: Denies chills, Denies fatigue, Denies fever(s), Denies lethargy, Denies malaise, Denies night sweats, Denies poor appetite and Reports weakness Eyes: Eyes: Denies change in vision ENT: Denies dysphagia, Denies vertigo, Denies dizziness, Denies odynophagia and Denies disequilibrium Cardiovascular: Cardiovascular: Denies chest pain, Denies syncope, Denies irregular heart rhythm, Denies leg edema and Denies lightheadedness Respiratory: Respiratory: Denies chest congestion, Denies excessive phlegm production, Denies pain on inspiration, Denies dyspnea, Denies dyspnea on exertion and Denies wheezing Gastrointestinal: Gastrointestinal: Denies abdominal pain, Denies dyspepsia, Denies heartburn, Denies diarrhea, Denies nausea and Denies vomiting Genitourinary: Genitourinary: Denies dysuria Musculoskeletal: Musculoskeletal: Denies muscle cramps, Reports muscle weakness, Denies numbness, Denies radiating pain into limb, Denies tingling and Reports other (Recurrent falls) Integumentary/Breasts: Skin/Breast: Denies rash Neurologic: Denies focal weakness, Denies Sensory deficit (Neuro), Denies tingling and Denies paresthesias Psychiatric: Psychiatric: Reports no additional psychiatric complaints and Reports as per HPI Endocrine: Endocrine: Denies cold intolerance, Denies flushing, Denies heat intolerance, Denies polyphagia, Denies polydipsia and Denies palpitations Hematologic/Lymphatic: Hematologic/Lymphatic: Reports no additional hematologic/lymphatic complaints and Reports as per HPI Allergic/Immunologic: Allergic/Immunologic: Reports no additional allergic/immunologic complaints and Reports as per HPI [facility] Past Medical History Medical History Anxiety Arthritis Cihn's esophagus Coronary artery disease Duodenal arteriovenous malformation Gastroesophageal reflux disease Hiatal hernia Hyperlipidemia Hypertension Type 2 diabetes mellitus Vitamin D deficiency disease Surgical History Surgical History History of appendectomy History of colonoscopy History of coronary artery bypass graft x 2 (1999) History of esophagogastroduodenoscopy History of hysterectomy History of tonsillectomy Family History Family History Father Cerebrovascular accident, Onset Age: 83 Family history of diabetes mellitus in first degree relative Diabetes mellitus Hypertension Mother Family history of heart disease in male family member before age 55, Onset Age: 82 Family history of kidney disease, Onset Age: 82 Cerebrovascular accident Cancer Hypertension Heart disease Sibling Family history of lung disease, Onset Age: 65 Cerebrovascular accident Hypertension Grandparent Hypertension Heart disease Social History Social History Social History: Surrogate decision maker: Randi Cristina, daughter. Code status: Full code. Smoking
[2022-10-17] MEDS: LIDOCAINE HCL 1% LOCAL INJ 10 ML VIAL (22:09)
[2022-10-17 22:44] VITALS: BP 161/74; PULSE 79; RESP 18; TEMP 36.6; O2SAT 99
--- NOTE | 2022-10-17 23:33 | ADMGEN ---
This patient, Quin Ruggiero, was admitted to Medical Room 343-01. Patient/family oriented to hospital policies and general routines including ID bracelet, bed and alarms, visiting hours, pain management, procedures, bathroom and other care routines, personal items, smoking policy, room service/diet, and visiting hours. Information on how to activate the Rapid Response Team has been discussed. Patient/Family are encouraged to report perceived risks to care and to ask questions if they do not understand what they are told or what they should do.
[2022-10-17 23:40] VITALS: BMI 28.3
[2022-10-17 23:41] VITALS: BP 165/66; PULSE 86; RESP 18; TEMP 36.4; O2SAT 98
[2022-10-18] VITALS: PULSE 77
[2022-10-18 00:15] VITALS: PULSE 86; RESP 18; O2SAT 98
[2022-10-18 04:00] VITALS: PULSE 68
[2022-10-18 05:09] VITALS: BP 109/79; PULSE 75; RESP 18; TEMP 36.4; O2SAT 97
[2022-10-18 06:24] LABS: Creatine Kinase 45 U/L (30-135)
--- NOTE | 2022-10-18 08:07 | PM.IMPN ---
Progress Note: A&P Assessment and Plan (1) Gait disturbance: Code(s): R26.9 - Unspecified abnormalities of gait and mobility Status: Acute Assessment and Plan: CT of the head nonacute MRI brain nonacute Muscle strength is 5/5 in all limbs PT/OT consult pending (2) Recurrent falls: Code(s): R29.6 - Repeated falls Status: Acute Assessment and Plan: Fall precautions PT/OT (3) Hypertension: Qualifiers: Hypertension type: primary hypertension Qualified Code(s): I10 - Essential (primary) hypertension Code(s): I10 - Essential (primary) hypertension Status: Acute Assessment and Plan: Continue home meds Continue to monitor Blood pressure reviewed 10/18 (4) Diabetes mellitus: Qualifiers: Diabetes mellitus complication status: without complication Diabetes mellitus bed bug exterminator insulin use: without bed bug exterminator use Diabetes mellitus type: type 2 Qualified Code(s): E11.9 - Type 2 diabetes mellitus without complications Code(s): E11.9 - Type 2 diabetes mellitus without complications Status: Acute Assessment and Plan: Holding metformin and glipizide Insulin sliding scale Accu-Cheks AC and HS Blood glucose reviewed 10/18 Plan DVT prophylaxis with SCDs GI prophylaxis with PPI Code status full code Subjective Date/time seen: 10/18/22 08:07 Interval history: A 7-year-old female with past medical history significant for hypertension, diabetes is presenting with recurrent falls and generalized weakness. No overnight events noted. No chest pain or shortness of breath. No nausea, vomiting or diarrhea. No fevers or chills. Review of Systems Review of Systems: 12 point review of systems was assessed and was negative except as noted in the HPI Exam Narrative: General: No acute distress, alert and oriented per baseline HEENT: Atraumatic, normocephalic, mucous membranes moist CV: Regular rate and rhythm, S1, S2 Lungs: Clear to auscultation bilaterally, no rales or crackles noted, no wheezes, good air entry Abdomen: Soft, nontender, nondistended Extremities: Normal to inspection Skin: No rashes noted, no lesions or wounds seen Psych: Euthymic, normal affect Objective Data Vital Signs Vital Signs: Vital Signs - 24 hr 10/17/22 17:09 10/17/22 17:26 10/17/22 22:44 Temperature 97.9 F 98.3 F 98 F Pulse Rate 81 79 Respiratory Rate 16 15 18 Blood Pressure 164/70 H 150/64 H 161/74 H Pulse Oximetry 99 96 99 Oxygen Delivery Room Air Room Air 10/17/22 23:41 10/18/22 00:15 10/18/22 00:00 Temperature 97.6 F Pulse Rate 86 86 77 Respiratory Rate 18 18 Blood Pressure 165/66 H Pulse Oximetry 98 98 Oxygen Delivery Room Air 10/18/22 04:00 10/18/22 05:09 Temperature 97.6 F Pulse Rate 68 75 Respiratory Rate 18 Blood Pressure 109/79 Pulse Oximetry 97 Oxygen Delivery Intake/Output Intake/Output: Intake & Output 10/15/22 10/16/22 10/17/22 10/18/22 23:59 23:59 23:59 23:59 Intake Total 200 Output Total 600 Balance -400 Meds/Results Medications: Active Medications Generic Name Dose Route Start Last Admin Trade Name Freq PRN Reason Stop Dose Admin Acetaminophen 650 mg 10/17/22 21:27 Acetaminophen 325 Mg Tablet PO Q4H PRN Mild Pain (1-3) or Fever Acetaminophen 500 mg 10/18/22 02:07 Acetaminophen 500 Mg Tablet PO Q6H PRN fever or pain Hydrocodone Bitart/Acetaminophen 1 tab 10/17/22 21:27 Hydrocodone/Acetaminophen (*Crx) 5-325 Mg Tablet PO Q4H PRN Pain Rated 4-6 Alprazolam 0.5 mg 10/18/22 02:07 Alprazolam (*Crx) 0.5 Mg Tablet PO BID PRN anxiety Amlodipine Besylate 5 mg 10/18/22 09:00 Amlodipine Besylate 5 Mg [facility] Aspirin 81 mg 10/18/22 09:00 Aspirin 81 Mg Enteric Tablet PO DAILY ANY Bupropion HCl 150 mg 10/18/22 09:00 Bupropion Hcl Xl (24 Hr) 150 Mg
[2022-10-18 08:19] LABS: Erythrocyte Sedimentation Rate 17 mm/hr (0-20)
[2022-10-18 08:32] LABS: Glucose Point of Care 160 mg/dl (65-105)
[2022-10-18 09:15] VITALS: PULSE 74
[2022-10-18] MEDS: LOSARTAN POTASSIUM 50 MG TABLET PO (09:22)
[2022-10-18] MEDS: MULTIVITAMINS THERAPEUTIC TAB (*BKC) 1 TABLET PO (09:22)
[2022-10-18] MEDS: amLODIPine BESYLATE 5 MG TABLET PO (09:22)
[2022-10-18] MEDS: buPROPion HCL XL (24 HR) 150 MG TABCR PO (09:22)
[2022-10-18] MEDS: ASPIRIN 81 MG ENTERIC TABLET PO (09:22)
[2022-10-18] MEDS: PANTOPRAZOLE 40 MG TABLET PO (09:22)
[2022-10-18 10:06] LABS: Basophils Absolute Auto 0.1 K/mm3 (0.0-0.1); Basophils Percent Auto 0.5 % (0.2-1.2); Eosinophils Absolute Auto 0.3 K/mm3 (0-0.3); Eosinophils Percent Auto 3.1 % (0-4.4); Hemoglobin 13.7 g/dL (12.0-15.0); Immature Granulocyte Absolute 0.04 K/mm3 (0.00-0.031); Immature Granulocyte Percent A 0.4 % (0-0.5); Lymphocytes Absolute Auto 2.41 K/mm3 (0.9-3.2); Mean Corpuscular HGB Conc 31.9 g/dl (32-36); Mean Corpuscular Hemoglobin 29.5 pg (26-34); Mean Corpuscular Volume 92.7 fl (80-100); Mean Platelet Volume 9.8 fl (7.4-10.4); Monocytes Absolute Auto 0.8 K/mm3 (0.1-0.6); Monocytes Percent Auto 8.6 % (2.6-8.5); Neutrophils Absolute Auto 5.7 K/mm3 (1.3-6.7); Neutrophils Percent Auto 61.4 % (45.5-73.1); Platelet Count Result 350 k/mm3 (150-375); Red Blood Count 4.64 M/mm3 (4.2-5.4); White Blood Count 9.3 K/mm3 (4.5-10.0)
[2022-10-18 10:21] LABS: Alanine Aminotransferase 24 U/L (6-35); Albumin Level 4.6 g/dL (3.5-5.1); Alkaline Phosphatase 104 U/L (38-126); Anion Gap 8 mmol/L (8-16); Aspartate Amino Transferase 28 U/L (14-36); Bilirubin,Total 0.7 mg/dL (0.2-1.3); Blood Urea Nitrogen 14 mg/dL (7-17); Carbon Dioxide 27 mmol/L (22-30); Chloride 106 mmol/L (98-107); Estimated Glomerular Filt Rate > 60; Glucose 135 mg/dL (65-110); Sodium 141 mmol/L (137-145)
[2022-10-18] MEDS: INSULIN ASPART (*BKC) 100 UNITS/ML SUB-Q (12:32)
[2022-10-18 12:33] LABS: Glucose Point of Care 208 mg/dl (65-105)
[2022-10-18 14:00] VITALS: BP 134/74; PULSE 82; RESP 20; TEMP 36.8; O2SAT 96
--- NOTE | 2022-10-18 15:50 | PM.DS ---
DS: Admitting Diagnosis Discharge Date 10/18/22 Admitting Diagnosis fall/weakness DS: Discharge Diagnosis Discharge Diagnosis (1) Gait disturbance: Code(s): R26.9 - Unspecified abnormalities of gait and mobility Status: Acute Assessment and Plan: CT of the head nonacute MRI brain nonacute Muscle strength is 5/5 in all limbs PT/OT consult pending (2) Recurrent falls: Code(s): R29.6 - Repeated falls Status: Acute Assessment and Plan: Fall precautions PT/OT (3) Hypertension: Qualifiers: Hypertension type: primary hypertension Qualified Code(s): I10 - Essential (primary) hypertension Code(s): I10 - Essential (primary) hypertension Status: Acute Assessment and Plan: Continue home meds Continue to monitor Blood pressure reviewed 10/18 (4) Diabetes mellitus: Qualifiers: Diabetes mellitus type: type 2 Diabetes mellitus package checker insulin use: without package checker use Diabetes mellitus complication status: without complication Qualified Code(s): E11.9 - Type 2 diabetes mellitus without complications Code(s): E11.9 - Type 2 diabetes mellitus without complications Status: Acute Assessment and Plan: Holding metformin and glipizide Insulin sliding scale Accu-Cheks AC and HS Blood glucose reviewed 10/18 Plan DVT prophylaxis with SCDs GI prophylaxis with PPI Code status full code DS: Summary Hospital Course Hospital Course: 87-year-old female with past medical history significant for hypertension and diabetes is presenting frequent falls and generalized weakness. Brain MRI was negative for any acute etiology. Symptoms completely resolved upon her arrival to the ER. TSH, B12, folate all within normal limits. A1c was 6.7. No hypoglycemia thought to be contributing to weakness and falls, therefore, glimepiride was discontinued. She is to follow up with outpatient PT for further care. Time Spent with Patient Time attestation: Total time spent providing and/or coordinating discharge services: Exam Narrative: General: No acute distress, alert and oriented per baseline HEENT: Atraumatic, normocephalic, mucous membranes moist CV: Regular rate and rhythm, S1, S2 Lungs: Clear to auscultation bilaterally, no rales or crackles noted, no wheezes, good air entry Abdomen: Soft, nontender, nondistended Extremities: Normal to inspection Skin: No rashes noted, no lesions or wounds seen Psych: Euthymic, normal affect DS: Data Data Completed and Pending Labs on day of discharge: Labs from last 24 hours 10/18/22 10/18/22 10/18/22 12:24 08:15 05:28 WBC RBC Hgb Hct MCV MCH MCHC RDW Plt Count MPV Immature Gran % (Auto) Neut % (Auto) Lymph % (Auto) [place] % (Auto) Eos % (Auto) Baso % (Auto) Lymph # (Auto) [place] # (Auto) Eos # (Auto) Baso # (Auto) Abs Immat Gran (auto) Absolute Neuts (auto) Absolute Nucleated RBC Nucleated RBC % ESR Sodium Potassium Chloride Carbon Dioxide Anion Gap BUN Creatinine Estim Creat Clear Calc Estimated GFR Glucose POC Capillary Glucose 208 H 160 H Calcium Total Bilirubin AST ALT Alkaline Phosphatase Total Creatine Kinase 45 C-Reactive Protein 1.0 Total Protein Albumin Urine Color Urine Appearance Urine pH Ur Specific Donald Urine Protein Urine Glucose (UA) Urine Ketones Ur Blood (Man) Urine Nitrate Urine Bilirubin Urine Urobilinogen Leukocyte Esterase Rfl 10/18/22 10/18/22 10/18/22 05:28 05:26 05:26 WBC 9.3 RBC 4.64 Hgb 13.7 Hct 43.0 MCV 92.7 MCH 29.5 MCHC 31.9 L RDW 14.0 Plt Count 350 MPV 9.8 Immature Gran % (Auto) 0.4 Neut % (Auto) 61.4 Lymph % (Auto) 26.0 [place] % (Auto) 8.6 H Eos % (Auto) 3.1 Baso % (Auto) 0.5 Lymp
== END 2022-10-18 16:55 | disposition home or self-care (01) ==
LOC: ANHED 21:32 → ANH3MED 10-18 00:15
PROVIDERS: Admitting Provider Internal Medicine; Emergency Provider Emergency Medicine; PCP Physician Assistant; Visit Provider Student in an Organized Health Care Education/Training Program
DX: R53.1 Weakness (principal); R26.9 Unspecified abnormalities of gait and mobility; R29.6 Repeated falls; I10 Essential (primary) hypertension; E11.9 Type 2 diabetes mellitus without complications; F41.9 Anxiety disorder, unspecified; M19.90 Unspecified osteoarthritis, unspecified site; I25.10 Atherosclerotic heart disease of native coronary artery without angina pectoris; Z95.1 Presence of aortocoronary bypass graft; R90.82 White matter disease, unspecified; Q27.39 Arteriovenous malformation, other site; K21.9 Gastro-esophageal reflux disease without esophagitis; E78.5 Hyperlipidemia, unspecified; K44.9 Diaphragmatic hernia without obstruction or gangrene; Z87.891 Personal history of nicotine dependence; Z79.82 Long term (current) use of aspirin; Z79.84 Long term (current) use of oral hypoglycemic drugs; Z82.49 Family history of ischemic heart disease and other diseases of the circulatory system; Z83.3 Family history of diabetes mellitus
CPT/HCPCS: 36415; 70450; 70553; 80053; 81003; 82550; 82948; 85025; 85652; 86140; 93005; 97161; 97530; 99285; A9270; A9577; G0378; J1815

== ENCOUNTER 2022-12-11 11:00 | Outpatient (RCR) | payer OTHER, SELFPAY ==
--- NOTE | 2022-11-12 12:52 | PCPTNOTE ---
Patient did not show up for scheduled evaluation this date.
--- NOTE | 2022-11-15 07:33 | PTOPEVAL1 ---
Assessment and note entered by Dalton Mendez, PT Evaluation Information Assessment Status Evaluation Diagnosis falls, decreased balance and strength Subjective Information Patient reports being on some medications that were making her falls and cuasing her to be weak. She has gotten her medications straightened out she thinks, but is still feeling weak and having some balance issues. Also reports what sounds like restless leg syndrome. Does not use any assistive device. Assessment PT Clinical Summary Quin is an 87 year old female coming into the clinic with a diagnosis of falls with weakness. She has weakness along with lack of range of motion in the ankles, tightness in the calfs, and weakness in the hips. Physical therapy will work on improving deficits to allow for a decreased shuffling gait which should help her balance and help her feel more secure on her feet. Plan of Care Interventions Electrical Stimulation,Gait Training,Hot Pack/Cold Pack,Manual Therapy,Neuro Re-education,Patient/ Caregiver Education,Therapeutic Activities, Therapeutic Exercise,Ultrasound PT Services Indicated Yes Treatment Frequency and 2x/wk for 4 weeks Duration These treatments will address the objective and functional deficits as defined above. The patient will be advanced safely and appropriately in order for the patient to progress towards his/her prior level of function. Additional exercises will be introduced and as well as a comprehensive home exercise program upon discharge, if needed, ?to ensure carryover of functional gains achieved in the clinic. This treatment plan has been reviewed and agreement upon by the patient.
--- NOTE | 2022-12-06 10:05 | PCPTNOTE ---
Patient did not show up for scheduled appointment this date. Called patient and she thought her appointment was at 10:30 today. Was able to move her appointment to another therapist this date.
--- NOTE | 2022-12-11 11:26 | PTOPDC ---
Assessment and note entered by Dalton Mendez, PT Evaluation Information Assessment Status Discharge Diagnosis Spondylosis, lumbar region, comp fracture thoracic vertebrae Subjective Information Patient reports she has had no falls in the last week and is not having issues, besides no motivation or energy to do anything. The patient has an appointment in December to see her medical doctor about that. Reported Pain Level Pain Score 0: Self Report Assessment PT Clinical Summary Quin is an 87 year old coming into the clinic secondary to falls and weakness. She has met her functional goal, range of motion, and 2 of three strength goals. Patient consistently throughout the session reports she has not done her HEP. Educated patient on thinking of her HEP as proper car maintenance and if she does them then she will not need a major overhaul ie more formal physical therapy. Discharged per patient request. Plan of Care PT Services Indicated No
== END 2022-12-11 14:09 | disposition home or self-care (01) ==
LOC: ANHPT 11:00
PROVIDERS: PCP Physician Assistant; Visit Provider Physician Assistant
DX: M47.816 Spondylosis without myelopathy or radiculopathy, lumbar region (principal); S22.000D Wedge compression fracture of unspecified thoracic vertebra, subsequent encounter for fracture with routine healing
CPT/HCPCS: 97110; 97112; 97161; 97530

== ENCOUNTER 2023-08-01 13:39 | Outpatient (CLI) | payer OTHER, SELFPAY ==
--- NOTE | ~2023-08-01 | DEXA_ITS ---
Bone Density Report Name: LOIS DOAN Age: 88 Sex: Female Ethnicity: White Date of : 1935 Indication: postmenopausal; screening for osteoporosis; height loss; hysterectomy; Referring Provider: SHANNAN CALHOUN Study: Bone densitometry was performed. Exam Date: August 01, 2023 Accession number: [id number] Bone Density: Region BMD T-score Z-score Classification AP Spine(L1-L4) 0.977 -0.6 2.2 Normal Femoral Neck (Left) 0.629 -2.0 0.5 Osteopenia Total Hip (Left) 0.874 -0.6 1.8 Normal Femoral Neck (Right) 0.749 -0.9 1.6 Normal Total Hip (Right) 0.887 -0.5 1.9 Normal Total Hip Mean 0.881 -0.6 1.9 Normal World Health Organization criteria for BMD impression classify patients as: Normal (T-score at or above -1.0), Osteopenia (T-score between -1.0 and -2.5), or Osteoporosis (T-score at or below -2.5). 10-year Fracture Risk(1): Major Osteoporotic Fracture 13% Hip Fracture 4.3% Reported Risk Factors: [place] (), Neck BMD=0.629, BMI=27.5 (1) FRAX(R) Version 3.08. Fracture probability calculated for an untreated patient. Fracture probability may be lower if the patient has received treatment. Clinical Information Provided by Patient: Has used the following medications: Vitamin D Has the following medical conditions: Hysterectomy Patient maximum height was 60 Menopause Age: 45 No regular weight bearing exercise Onset of menses at age 12 Number of children 2 Impression: The patient has low bone mass, based on the Left Femoral Neck T-score. The patient has an estimated ten-year risk of hip fracture of 4.3% and an estimated ten-year risk of major fracture of 13%, based on the WHO FRAX algorithm. Discussion: BONE DENSITY IS LOW AT ONE OR MORE SKELETAL SITES. THE PATIENT'S BMD AND CLINICAL RISK FACTORS CONTRIBUTE TO THIS PATIENT'S INCREASED RISK OF FRACTURE. This patient's lowest T-score is low at one or more skeletal sites. It meets the World Health Organization's (WHO) criteria for ?low bone mass? (T-score between -1.0 and -2.5). The patient's 10-year risk of hip fracture as calculated by FRAX exceeds the threshold where pharmacological therapy is recommended by the National Osteoporosis Foundation (NOF). However, all treatment decisions require clinical judgment and consideration of individual patient factors, including patient preferences, comorbidities, previous drug use, risk factors not captured in the FRAX model (e.g., frailty, falls, vitamin D deficiency, increased bone turnover, interval significant decline in bone density) and possible under or overestimation of fracture risk by FRAX. The patient should follow a healthful lifestyle (good nutrition with adequate calcium and vitamin D, and appropriate weight-bearing exercise). Follow-Up: Consider a repeat BM
== END 2023-08-01 13:40 | disposition home or self-care (01) ==
PROVIDERS: PCP Physician Assistant; Visit Provider Internal Medicine
DX: S22.000A Wedge compression fracture of unspecified thoracic vertebra, initial encounter for closed fracture (principal); X58.XXXA Exposure to other specified factors, initial encounter; M85.852 Other specified disorders of bone density and structure, left thigh
CPT/HCPCS: 77080

== ENCOUNTER 2024-03-23 11:09 | Outpatient (CLI) | payer OTHER, SELFPAY ==
--- NOTE | ~2024-03-23 | XR_ITS ---
XR chest 2V 03/23/2024 11:52 Indication: Cough for 2 weeks Procedure: 2 view chest Comparison: 08/24/2022 and 01/22/2022 Findings: Status post median sternotomy for CABG. Heart size normal. No focal air space disease, pulm onary edema, pleural effusion or suspected pneumothorax. There is a new T10 burst fracture compared w ith 08/24/2022, age indeterminate. Impression: 1: No acute cardiopulmonary disease. 2: Age-indeterminate T10 burst fracture, new compared with prior chest x-ray. Reviewed, dictated and finalized at location [facility]. Impression: 1: No acute cardiopulmonary disease. 2: Age-indeterminate T10 burst fracture, new compared with prior chest x-ray.
== END 2024-03-23 11:10 | disposition home or self-care (01) ==
PROVIDERS: PCP Internal Medicine; Visit Provider Internal Medicine
DX: R05.9 Cough, unspecified (principal); S22.071A Stable burst fracture of T9-T10 vertebra, initial encounter for closed fracture; X58.XXXA Exposure to other specified factors, initial encounter
CPT/HCPCS: 71046

== ENCOUNTER 2024-07-06 08:59 | Outpatient (CLI) | payer OTHER, SELFPAY ==
--- NOTE | ~2024-07-06 | MM_ITS ---
EXAMINATION: MM screening faith BI w rodri HISTORY: Screening TECHNIQUE: Craniocaudal and mediolateral oblique 3-D tomosynthesis images were obtained and synthetic 2-D images were generated. CAD analysis was submitted and interpreted. COMPARISON: Comparison to multiple prior studies sequentially, with oldest reviewed study dated 08/08. BREAST PARENCHYMAL COMPOSITION: Dense: The breasts are heterogeneously dense, which may obscure small masses FINDINGS: The right breast is stable without evidence for malignancy. There is a developing nodular c luster of asymmetries in the lower inner quadrant of the left breast. There are no suspicious calcifi cations or architectural distortion. IMPRESSION: 1. Developing regional nodular asymmetries centered in the lower inner quadrant of the left breast an teriorly. 2. Additional mammographic views and possible breast ultrasound are recommended. BI-RADS Category 0: Incomplete: Needs additional imaging evaluation. Reviewed, dictated and finalized at location B. OYMENT EVALUATOR/CASE MANAGER IMPRESSION: 1. Developing regional nodular asymmetries centered in the lower inner quadrant of the left breast anteriorly. 2. Additional mammographic views and possible breast ultrasound are recommended . BI-RADS Category 0: Incomplete: Needs additional imaging evaluation.
== END 2024-07-06 09:00 | disposition home or self-care (01) ==
LOC: ANHIMG 09:02
PROVIDERS: PCP Nurse Practitioner; Visit Provider Nurse Practitioner
DX: Z12.31 Encounter for screening mammogram for malignant neoplasm of breast (principal); R92.8 Other abnormal and inconclusive findings on diagnostic imaging of breast
CPT/HCPCS: 77063; 77067

== ENCOUNTER 2024-07-17 12:10 | Outpatient (CLI) | payer OTHER, SELFPAY ==
--- NOTE | ~2024-07-17 | MMUS_ITS ---
EXAMINATION: MM diagnostic faith LT w rodri, US breast LT complete HISTORY: Follow-up left breast asymmetries TECHNIQUE: Additional 3-D tomosynthesis images of the left breast were performed and synthetic 2-D im ages were generated. CAD analysis was submitted and interpreted. High resolution complete left breast ultrasound was performed. COMPARISON: Comparison to multiple prior studies sequentially, with oldest reviewed study dated 08/19. BREAST PARENCHYMAL COMPOSITION: Not dense: There are scattered areas of fibroglandular density. FINDINGS: MAMMOGRAPHIC FINDINGS: There are no discrete masses, architectural distortion or suspicious calcifications. Left breast asym metries are less dense with spot compression views, compatible with superimposed fibroglandular tissu e. ULTRASOUND: Complete US of all 4 quadrants of the left breast/s and retroareolar region was reviewed. No sonograp hic evidence for malignancy in the left breast. There is a small benign intramammary lymph node of th e left breast at 3:00, 8 cm from the nipple. IMPRESSION: 1. No evidence for malignancy in the left breast. Benign findings. 2. Routine yearly screening mammogram and regular clinical breast examination are recommended. BI-RADS Category 2: Benign finding(s). Reviewed, dictated and finalized at location B. ARY EDUCATION PROFESSOR IMPRESSION: 1. No evidence for malignancy in the left breast. Benign findings. 2. Routine yearly screening mammogram and regular clinical breast examination a re recommended. BI-RADS Category 2: Benign finding(s).
== END 2024-07-17 12:11 | disposition home or self-care (01) ==
LOC: ANHIMG 12:12
PROVIDERS: PCP Nurse Practitioner; Visit Provider Nurse Practitioner
DX: R92.8 Other abnormal and inconclusive findings on diagnostic imaging of breast (principal)
CPT/HCPCS: 76641; 77061; 77065; G0279

== ENCOUNTER 2024-08-28 17:04 | Emergency (ER) | payer OTHER, SELFPAY ==
[2024-08-28 17:22] VITALS: BP 167/71; PULSE 73; RESP 17; TEMP 36.5; O2SAT 100
--- NOTE | 2024-08-28 17:38 | ED_ITS ---
HPI - Wound/Laceration General Chief Complaint: Skin/Abscess/Foreign Body Stated Complaint: Dog Scratch Time Seen by Provider: 08/28/24 17:50 Source: patient and RN notes reviewed Mode of arrival: ambulatory Limitations: no limitations History of Present Illness HPI narrative: 89-year-old female presents with concern for dog bite to her left hand. Reports her dog scratched her with its teeth causing a laceration. She denies decreased sensation, strength, range of motion hand or any digits. She is up-to-date on her tetanus vaccination. Related Data Home Medications ?Medication ?Instructions ?Recorded ?Confirmed ?Last Taken ?Type ascorbic acid (vitamin C) 500 mg 1,000 mg PO QAM 07/31/19 06/03/24 Unknown History capsule,extended release (Vitamin C) aspirin 81 mg tablet,delayed 81 mg PO DAILY 07/31/19 06/03/24 01/26/22 History release multivitamin (Daily Multi-Vitamin 1 tablet PO DAILY 05/01/22 06/03/24 Unknown Hi story tablet) Allergies Allergy/AdvReac Type Severity Reaction Status Date / Time Penicillins Allergy Mild Rash Verified 08/28/24 17:28 ceftriaxone AdvReac Mild Rash Verified 08/28/24 17:28 tramadol AdvReac Nausea and Verified 08/28/24 17:28 Vomiting Review of Systems Review of Systems: CONSTITUTIONAL: Denies malaise, chills, sweats, or fever. 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 Essential (primary) hypertension Gastroesophageal reflux disease GERD without esophagitis Hair loss disorder Hiatal hernia Hyperlipidemia Hypertension Ingrown toenail Major depressive disorder, single episode, unspecified Mixed hyperlipidemia Moderate single current episode of major depressive disorder Osteopenia of multiple sites Other hyperlipidemia Patient had no falls in past year Polyosteoarthritis, unspecified Postmenopausal Skin lesion of face Type 2 diabetes mellitus Type 2 diabetes mellitus without complications Vitamin D deficiency disease Surgical History Surgical History History of appendectomy History of colonoscopy History of coronary artery bypass graft x 2 (1999) History of esophagogastroduodenoscopy History of hysterectomy History of tonsillectomy Family History Family History Father Cerebrovascular accident, Onset Age: 83 Family history of diabetes mellitus in first degree relative Diabetes mellitus Hypertension Mother Family history of heart disease in male family member before age 55, Onset Age: 82 Family history of kidney disease, Onset Age: 82 Cerebrovascular accident Cancer Hypertension Heart disease Sibling Family history of lung disease, Onset Age: 65 Cerebrovascular accident Hypertension Grandparent Hypertension Heart disease Social History Social History (Updated 06/03/24 @ 08:02 by VENU Carpenter) Social History: Surrogate decision maker: Randi Evans, annalise. Code status: Full code. Smoking packs per day: 1 Smoking cigarettes per day: 20.0 Years smoked: 12 Smoking pack-years: 12.00 Smoking status: Former smoker Tobacco type: cigarettes Second hand tobacco smoke exposure: Yes Smoking end date: 07/29/98 Alcohol intake: never Substance use: never Substance use type: does not use Do You Feel Safe in your Home?: Yes Lack of Transportation: No Lack of Food: Never True Current Housing: I Have Housing Concerned About Future Housing: No Difficulty Paying Gas/Electric Bills: No Difficulty Paying for Meds: No Currently Unemployed: No Education: High School Diploma/GED Difficulty w/ Childcare or Family Care: No Living arrangements: with family Additional living arrangements comments: The patient lives in [place] with her daughter. 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 Gender identity (if verbalized by the patient): Female Spiritual care concerns: No Comments At time of signature, agree with nursing past medical, surgical, social and family history. There is no relevant family history pertinent to the presenting complaint Exam Narrative: GENERAL: Well-appearing, well-nourished, and in no acute distress. HEAD: Normocephalic, atraumatic. EYES: PERRLA, conjunctivae clear ENT: Mucous membranes moist. NECK: Supple. No lymphadenopathy CHEST: Clear to auscultation. No respiratory distress. HEART: Regular rate and rhythm. SKIN: Warm, dry. 3.5 cm linear laceration in the subcutaneous tissue noted the dorsal aspect of left hand MUSC: Normal sensation, strength, range of motion to the left hand digits NEURO: Alert and oriented x3. PSYCH: Normal mood and affect Course Course Emergency Course: Based on the depth of the laceration I recommended yahaira for this dog bite closure. Patient refused yahaira, we will close with Steri-Strips. Anticipatory guidance given. Patient agrees to follow-up as directed and is aware of reasons to seek care at the emergency department. Portions of this record may have been created with voice recognition software Level of Care: Express Care Visit Vital Signs Vital signs: Vital Signs Temperature 97.7 F 08/28/24 17:22 Pulse Rate 73 08/28/24 17:22 Respiratory Rate 17 08/28/24 17:22 Blood Pressure 167/71 H 08/28/24 17:22 Pulse Oximetry 100 08/28/24 17:22 Oxygen Delivery Room Air 08/28/24 17:22 Temperature 97.7 F 08/28/24 17:22 Pulse Rate 73 08/28/24 17:22 Respiratory Rate 17 08/28/24 17:22 Blood Pressure 167/71 H 08/28/24 17:22 Pulse Oximetry 100 08/28/24 17:22 Oxygen Delivery Room Air 08/28/24 17:22 Reviewed. Procedures Laceration Laceration 1: Date: 08/28/24 Time: 18:03 Site: hand Side (If applicable): left Size (cm): 3.5 Description: linear Depth: simple, single layer Pre-repair: wound explored and irrigated extensively ====== Skin Level ====== Skin layer closed with: steri strips ====== Subcutaneous Layer ====== ====== Muscle Layer ====== ====== Tendon Layer ====== MDM - Wound/Laceration MDM Narrative Medical decision making narrative: Wound explored for foreign body and copious irrigation provided with no evidence of FB. Discussed the potential of retained foreign body with the patient and signs/symptoms that should prompt the patient to immediately go to the ED for reevaluation. A sterile dressing was then applied and anticipatory guidance was provided. Differential Diagnosis Differential diagnosis: Likely laceration, abrasion and avulsion of skin Critical Care Time Critical Care Time Critical Care Time: No Discharge Plan Discharge Clinical Impression: Laceration Patient Disposition: Home, Self-Care Condition: Stable Instructions: Animal Bite (ED) Additional Instructions: Keep wound clean, and dry. Cover with bandage as needed to prevent contamination. Do not soak, take baths, or swim until wound is completely healed. Do not clean with hydrogen peroxide. If any signs of infection such as redness, swelling, increasing pain, drainage of purulent discharge, streaks up your extremity develop, seek medical attention immediately. After sutures are removed, keep your scar out of the sun. You may use OTC silicone pad and/or scar massage with ointment (for 10-15 min a day) after one month. Talk to your doctor if you think you are developing a keloid. Patient Language: Irish Prescriptions: No Action ascorbic acid (vitamin C) [Vitamin C] 500 mg capsule, extended release 1,000 mg PO QAM aspirin 81 mg tablet,delayed release (DR/EC) 81 mg PO DAILY Rx Instructions: Take 1 tablet (81mh) by oral route everyday ; Takes at supper calcium carbonate [Calcium 500] 500 mg calcium (1,250 mg) tablet,chewable 500 mg PO BID Qty: 180 0RF multivitamin [Daily Multi-Vitamin] Tablet 1 tablet PO DAILY acetaminophen 500 mg capsule 500 mg PO Q6H PRN (Reason: fever or pain) 10 Days Qty: 30 0RF (DME) lancets 32 gauge misc See Rx Instructions .Route Qty: 100 0RF Rx Instructions: check blood sugar once daily (DME) lancets [Microlet Lancet] Misc See Rx Instructions .Route Qty: 100 3RF Rx Instructions: check blood sugar once daily cholecalciferol (vitamin D3) 50 mcg (2,000 unit) capsule See Rx Instructions .ROUTE .COMPLEX Qty: 90 0RF Dose Instruction: TAKE 1 CAPSULE BY MOUTH EVERY DAY Rx Instructions: TAKE 1 CAPSULE BY MOUTH EVERY DAY omeprazole 40 mg capsule,delayed release(DR/EC) 40 mg PO DAILY Qty: 90 2RF Rx Instructions: TAKE ONE CAPSULE BY MOUTH ONCE DAILY BEFORE A MEAL (DME) Contour Next Test Strips Strip See Rx Instructions .Route Qty: 100 3RF Rx Instructions: check blood sugar once daily metformin 500 mg tablet extended release 24 hr See Rx Instructions .ROUTE .COMPLEX Qty: 360 0RF Dose Instruction: TAKE 2 TABLETS BY MOUTH TWICE DAILY Rx Instructions: TAKE 2 TABLETS BY MOUTH TWICE DAILY losartan 50 mg tablet 50 mg PO QAM Qty: 90 2RF amlodipine 5 mg tablet See Rx Instructions .ROUTE .COMPLEX Qty: 90 1RF Dose Instruction: TAKE 1 TABLET BY MOUTH EVERY DAY IN THE MORNING Rx Instructions: TAKE 1 TABLET BY MOUTH EVERY DAY IN THE MORNING alendronate 70 mg tablet See Rx Instructions .ROUTE .COMPLEX Qty: 12 0RF Dose Instruction: TAKE 1 TABLET BY MOUTH ONCE A WEEK ADVISED PATIENT TO TAKE THE MEDICATION ON AN EMPTY STOMACH AND TO WAIT AT LEAST 1 HOUR BEFORE EATING DRINKING TAKING OTHER MEDICATIONS THE PATIENT IS TO NOT LIE DOWN FOR AT LEAST 1 HOUR AFTER TAKING THE MEDICATION Rx Instructions: TAKE 1 TABLET BY MOUTH ONCE A WEEK ADVISED PATIENT TO TAKE THE MEDICATION ON AN EMPTY STOMACH AND TO WAIT AT LEAST 1 HOUR BEFORE EATING DRINKING TAKING OTHER MEDICATIONS THE PATIENT IS TO NOT LIE DOWN FOR AT LEAST 1 HOUR AFTER TAKING THE MEDICATION atorvastatin 20 mg tablet See Rx Instructions .ROUTE .COMPLEX Qty: 90 1RF Dose Instruction: TAKE 1 TABLET BY MOUTH EVERY DAY Rx Instructions: TAKE 1 TABLET BY MOUTH EVERY DAY empagliflozin 25 mg tablet 25 mg PO DAILY Qty: 90 1RF Follow-up/Referrals: Desean Ruggiero APRN [Primary Care Provider] - Time of Disposition: 18:00
== END 2024-08-28 18:30 | disposition home or self-care (01) ==
PROVIDERS: Emergency Provider Nurse Practitioner; PCP Nurse Practitioner
DX: S61.412A Laceration without foreign body of left hand, initial encounter (principal); W54.0XXA Bitten by dog, initial encounter; Z87.891 Personal history of nicotine dependence; K22.70 Barrett's esophagus without dysplasia; I25.10 Atherosclerotic heart disease of native coronary artery without angina pectoris; I10 Essential (primary) hypertension; K21.9 Gastro-esophageal reflux disease without esophagitis; E78.2 Mixed hyperlipidemia; M85.80 Other specified disorders of bone density and structure, unspecified site; E11.9 Type 2 diabetes mellitus without complications; Z79.84 Long term (current) use of oral hypoglycemic drugs; E55.9 Vitamin D deficiency, unspecified; Z79.82 Long term (current) use of aspirin; Z95.1 Presence of aortocoronary bypass graft
CPT/HCPCS: 99212; G0463